=== PATIENT | male | born 1950 | race Caucasian/White ===

== ENCOUNTER 2017-11-11 10:14 | Inpatient (IN) | payer OTHER ==
[2017-11-11 10:52] VITALS: BMI 18.9
--- NOTE | 2017-11-11 11:50 | HP ---
COWS - Scale Resting Pulse: 1= [place] 81-100 Sweatin= Chills/Flushing Restless Observation: 3= Extraneous Movement Pupil Size: 1= Pupils >than Normal Bone or Joint Aches: 2= Severe Diffuse Aches Runny Nose/ Eye Tearin= Runny Nose/Eyes GI Upset > 30mins: 3= Vomiting/Diarrhea Tremor Observation: 2= Slight Tremor Visible Yawning Observation: 1= 1-2x During Session Anxiety or Irritability: 2=Irritable/Anxious Goose Flesh Skin: 0=Smooth Skin COWS Score: 18 Admission ROS S - HPI Chief Complaint: i need help to stop using heroin Allergies/Adverse Reactions: Allergies Allergy/AdvReac Type Severity Reaction Status Date / Time No Known Allergies Allergy Verified 11/11/17 11:12 History of Present Illness: this 67 years old male with heroin dependence,seen in [facility] last night,refer to detox,history of heroin dependence, multiple medical problem iddm,hypertension,hypercholesterolemia,history of mi in the past stated he used to be in the prison and was discharged from prison 2 weeks ago has been ambulating with own walker for last 2 years due to weakness and for balance nicotine dependence never been in detox before,stated need help to stop using heroin Exam Limitations: No Limitations - Ebola screening Have you traveled outside of the country in the last 21 days: No Have you had contact with anyone from an Ebola affected area: No Have you been sick,other than usual withdrawal symptoms: No Do you have a fever: No - Review of Systems Constitutional: Chills, Loss of Appetite, Malaise, Night Sweats, Changes in sleep, Weakness, Unintentional Wgt. Loss EENT: reports: Tearing, Nose Congestion Respiratory: reports: No Symptoms reported Cardiac: reports: Palpitations GI: reports: Nausea, Vomiting, Abdominal cramping : reports: No Symptoms Reported Musculoskeletal: reports: Back Pain, Muscle Pain Integumentary: reports: Dryness Neuro: reports: Headache, Tremors Endocrine: reports: Unexplained Weight Loss Hematology: reports: No Symptoms Reported Psychiatric: reports: No Sypmtoms Reported, Judgement Intact, Mood/Affect Appropiate, Orientated x3 Patient History - Patient Medical History Hx Anemia: No Hx Asthma: No Hx Chronic Obstructive Pulmonary Disease (COPD): No Hx Cancer: No Hx Cardiac Disorders: No Hx Congestive Heart Failure: No Hx Hypertension: Yes (on meds) Hx Hypercholesterolemia: Yes (on med) Hx Pacemaker: No HX Cerebrovascular Accident: No Hx Seizures: No Hx Dementia: No Hx Diabetes: Yes (Type II) Hx Gastrointestinal Disorders: No Hx Liver Disease: No Hx Genitourinary Disorders: No Hx Sexually Transmitted Disorders: No Hx Renal Disease (ESRD): No Hx Thyroid Disease: No Hx Human Immunodeficiency Virus (HIV): No (08/01) Hx Hepatitis C: No Hx Depression: No Hx Suicide Attempt: No Hx Bipolar Disorder: No Hx Schizophrenia: No Other Medical History: no suicidal,no homicidal - Patient Surgical History Past Surgical History: No - PPD History Previous Implant?: Yes Documented Results: Negative w/o proof Implanted On Prior [facility] Admission?: No PPD to be Administered?: Yes - Smoking Cessation Smoking history: Current every day smoker Have you smoked in the past 12 months: Yes Aproximately how many cigarettes per day: 4 Hx Chewing Tobacco Use: No Initiated information on smoking cessation: Yes 'Breaking Loose' booklet given: 11/11/17 - Substance & Tx. History Hx Alcohol Use: No Hx Substance Use: Yes Substance Use Type: Heroin Hx Substance Use Treatment: No - Substances Abused Heroin Route: Inhalation Frequency: Daily Amount used: 3-4 bags Age of first use: 64 Date of Last Use: 11/10/17 Family Disease History - Family Disease History Family History: Denies Admission Physical Exam BHS - Vital Signs Vital Signs: Vital Signs - 24 hr 11/11/17 10:50 Temperature 97 F L Pulse Rate 89 Respiratory 18 Rate Blood Pressure 134/84 - Physical General Appearance: Yes: Moderate Distress, Tremorous, Irritable, Sweating, Anxious HEENTM: Yes: Normal ENT Inspection, Normocephalic, Normal Voice, TRUE, Pharynx Normal, Other (no upper teeth no denture) Respiratory: Yes: Lungs Clear, Normal Breath Sounds, No Respiratory Distress Neck: Yes: Within Normal Limits, Supple, Trachea in good position Breast: Yes: Within Normal Limits Cardiology: Yes: Within Normal Limits, Regular Rhythm, Regular Rate, S1, S2 Abdominal: Yes: Within Normal Limits, Normal Bowel Sounds, Non Tender, Flat, Soft Genitourinary: Yes: Within Normal Limits Back: Yes: Muscle Spasm Musculoskeletal: Yes: Back pain, Joint Stiffness, Muscle Pain, Other (use walker at home) Extremities: Yes: Tremors Neurological: Yes: cigarette examiner II-XII NML intact, Fully Oriented, Alert, Other ( ambulate with walker outside history of fall in the past) Integumentary: Yes: Dry, Other (superficial ulcer both buttocks size 3x3 inches) Lymphatic: Yes: Within Normal Limits - Diagnostic (1) Opioid dependence with withdrawal Current Visit: Yes Status: Acute (2) Essential hypertension Current Visit: Yes Status: Acute (3) Hypercholesterolemia Current Visit: Yes Status: Acute (4) Osteoporosis Current Visit: Yes Status: Acute (5) Arthritis Current Visit: Yes Status: Acute (6) Walker as ambulation aid Current Visit: Yes Status: Acute (7) Nicotine dependence Current Visit: Yes Status: Acute (8) History of fall Current Visit: Yes Status: Acute (9) 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
[2017-11-11] MEDS ORDERED: LOPERAMIDE HCL 2 MG CAPSULE PO PRN (12:29)
[2017-11-11] MEDS ORDERED: P-EPHED 60MG/TRIPROLIDI 2.5MG TABLET PO PRN (12:29)
[2017-11-11] MEDS ORDERED: MENTHOL/PHENOL 1 EACH UD MM PRN (12:29)
[2017-11-11] MEDS ORDERED: guaiFENesin/D-METHORPHAN HB 10 ML UNIT-DOSE CUPS PO PRN (12:29)
[2017-11-11] MEDS ORDERED: METHADONE HCL 10 MG TABLET (FOR DETOX USE ONLY) PO ONE ×2 (13:00→23:00)
[2017-11-11] MEDS: diazePAM 5 MG TABLET PO PRN (14:25)
[2017-11-11] MEDS: NICOTINE 14 MG/24 HOURS TOPICAL PATCH TD SCH (14:33)
[2017-11-11 16:54] LABS: URINE APPEARANCE CLEAR; URINE BILIRUBIN NEGATIVE (<2.0 mg/dL); URINE COLOR LTYELLOW; URINE GLUCOSE (UA) 3+ (NEGATIVE); URINE KETONE NEGATIVE (NEGATIVE); URINE LEUK ESTERASE NEGATIVE (NEGATIVE); URINE NITRITE NEGATIVE (NEGATIVE); URINE PROTEIN NEGATIVE (NEGATIVE); URINE UROBILINOGEN NEGATIVE mg/dL (0.2-1.0)
[2017-11-11] MEDS: INSULIN (NOVOLOG) ASPART 100 UNITS/ML 10ML VIAL SQ SCH ×2 (16:55→22:40)
[2017-11-11] MEDS ORDERED: INSULIN (NOVOLOG) ASPART 100 UNITS/ML 10ML VIAL ONE (16:57)
[2017-11-11 17:03] LABS: EPI CELLS RARE /HPF (FEW)
[2017-11-11 17:40] LABS: CHOLESTEROL 201 mg/dL (50-200); TRIGLYCERIDES 131 mg/dL (35-160)
[2017-11-11 17:43] LABS: HDL CHOLESTEROL 40 mg/dL (40-60)
[2017-11-11] MEDS: THIAMINE HCL 100 MG TABLET (FP) PO SCH (22:24)
[2017-11-11] MEDS: SILVER SULFADIAZINE 1% TOP CREAM 50 GM JAR TP SCH (22:24)
[2017-11-11] MEDS: ATORVASTATIN CA 10 MG TABLET (FP) PO SCH (22:25)
[2017-11-12] MEDS: INSULIN (NOVOLOG) ASPART 100 UNITS/ML 10ML VIAL SQ SCH ×4 (08:00→22:48)
[2017-11-12] MEDS ORDERED: INSULIN (NOVOLOG) ASPART 100 UNITS/ML 10ML VIAL ONE ×3 (08:24→22:52)
--- NOTE | 2017-11-12 09:09 | PN ---
BHS COWS - Scale Resting Pulse: 0= [place] 80 or Below Sweatin= Chills/Flushing Restless Observation: 3= Extraneous Movement Pupil Size: 1= Pupils >than Normal Bone or Joint Aches: 2= Severe Diffuse Aches Runny Nose/ Eye Tearin= Runny Nose/Eyes GI Upset > 30mins: 2= Nausea/Diarrhea Tremor Observation of Outstretched Hands: 2= Slight Tremor Visible Yawning Observation: 1= 1-2x During Session Anxiety or Irritability: 2=Irritable/Anxious Goose Flesh Skin: 0=Smooth Skin COWS Score: 16 BHS Progress Note (SOAP) Subjective: alert,irritable,anxious,interrupted sleep,pain in the body and back Objective: 11/12/17 09:04 Vital Signs Temperature 99.1 F 11/12/17 08:59 Pulse Rate 96 H 11/12/17 08:59 Respiratory Rate 20 11/12/17 08:59 Blood Pressure 121/81 11/12/17 08:59 O2 Sat by Pulse Oximetry (%) ekg sinus bradycardia 43/min qt/qtc 460/388 no chest pain,no sob,no dizziness Laboratory Last Values POC Glucometer 170 UNITS (80-120) 11/12/17 08:15 Triglycerides 131 mg/dL (35-160) 11/11/17 12:40 Cholesterol 201 mg/dL (50-200) H 11/11/17 12:40 Total LDL Cholesterol 151 mg/dL (5-100) H 11/11/17 12:40 HDL Cholesterol 40 mg/dL (40-60) 11/11/17 12:40 Urine Color Ltyellow 11/11/17 14:49 Urine Appearance Clear 11/11/17 14:49 Urine pH 5.0 (5.0-8.0) 11/11/17 14:49 Ur Specific [place] 1.026 (1.001-1.035) 11/11/17 14:49 Urine Protein Negative (NEGATIVE) 11/11/17 14:49 Urine Glucose (UA) 3+ (NEGATIVE) H 11/11/17 14:49 Urine Ketones Negative (NEGATIVE) 11/11/17 14:49 Urine Blood 3+ (NEGATIVE) H 11/11/17 14:49 Urine Nitrite Negative (NEGATIVE) 11/11/17 14:49 Urine Bilirubin Negative (<2.0 mg/dL) 11/11/17 14:49 Urine Urobilinogen Negative mg/dL (0.2-1.0) 11/11/17 14:49 Ur Leukocyte Esterase Negative (NEGATIVE) 11/11/17 14:49 Urine WBC (Auto) 2 /hpf (3-5) 11/11/17 14:49 Urine RBC (Auto) 192 /hpf (0-3) 11/11/17 14:49 Ur Epithelial Cells Rare /HPF (FEW) 11/11/17 14:49 lab pending Assessment: 11/12/17 09:07 withdrawal symptom Plan: continue detox,repeat ua,
--- NOTE | 2017-11-12 09:26 | PN ---
BHS Progress Note Note: please disregard the ekg finding on note .03,belong to other patient the ekg finding is nsr 80/min qt/qtc 396/456
--- NOTE | 2017-11-12 09:27 | CONSULT ---
[facility] Psychiatric Consult - Data Date of interview: 11/12/17 Admission source: [facility] Identifying data: This is a 67 years old male, ambulating with walker, single father of three, homeless, on SSI, with heroin, nicotine dependence,seen in [facility] last night,refer to detox, reporting withdrawal symptoms and history of heroin dependence,. Patient reports multiple medical problems, denies suicidal, homicidal history Substance Abuse History: Smoking history: Current every day smoker. Have you smoked in the past 12 months: Yes. Aproximately how many cigarettes per day: 4. Hx Chewing Tobacco Use: No. Initiated information on smoking cessation: Yes. 'Breaking Loose' booklet given: 11/11/17. - Substance & Tx. History. Hx Alcohol Use: No. Hx Substance Use: Yes. Substance Use Type: Heroin. Hx Substance Use Treatment: No. - Substances Abused. Heroin. Route: Inhalation. Frequency: Daily. Amount used: 3-4 bags. Age of first use: 64. Date of Last Use: 11/10/17 Medical History: Arthritis history, HTN, Hypercholesterolemia, ambulating with walker, DM-II, [place]optry of [place] Psychiatric History: PATIENT REPORTS NO PSYCHIATRIC HOSPITALIZATION HISTORY, REPORTS NO PSYCHIATRIC MEDICATIONS TAKING PRIOR TO ADMISSIONL REPORTS NO SUICIDAL, HOMICIDAL HISTORY WELL. Physical/Sexual Abuse/Trauma History: Denies Additional Comment: Observation. Detox Unit Care Protocol Mental Status Exam - Mental Status Exam Alert and Oriented to: Person Cognitive Function: Fair Patient Appearance: Unkempt Mood: Apprehensive Affect: Mood Congruent Patient Behavior: Talkative, Cooperative Speech Pattern: Appropriate Voice Loudness: Mildly Soft/Quiet Thought Process: Circumstantial, Goal Oriented Thought Disorder: Being Controlled Hallucinations: Denies Suicidal Ideation: Denies Homicidal Ideation: Denies Insight/Judgement: Fair Sleep: Difficulty falling asleep Appetite: Weight loss Muscle strength/Tone: Mild Hypotonicity Gait/Station: Deferred Additional Comments: Observation. Detox Unit Care Protocol Psychiatric Findings - Problem List ([place] 1, 2,3) (1) Arthritis Current Visit: Yes Status: Acute (2) Essential hypertension Current Visit: Yes Status: Acute (3) Hypercholesterolemia Current Visit: Yes Status: Acute (4) Nicotine dependence Current Visit: Yes Status: Acute (5) Opioid dependence with withdrawal Current Visit: Yes Status: Acute (6) Osteoporosis Current Visit: Yes Status: Acute (7) Walker as ambulation aid Current Visit: Yes Status: Acute - Initial Treatment Plan Initial Treatment Plan: Observation. Detox Unit Care Protocol
[2017-11-12 10:00] LABS: HEMATOCRIT 37.1 % (35.4-49); HEMOGLOBIN 12.1 GM/dL (11.7-16.9); MCH 29.5 pg (25.7-33.7); MCHC 32.7 g/dl (32.0-35.9); MEAN CELL VOLUME 90.3 fl (80-96); MEAN PLT VOLUME 8.7 fl (7.5-11.1); PLATELET COUNT 345 K/MM3 (134-434); RDW 13.1 % (11.9-15.9); WHITE BLOOD COUNT 10.1 K/mm3 (4.0-10.0)
[2017-11-12] MEDS ORDERED: METHADONE HCL 10 MG TABLET (FOR DETOX USE ONLY) PO ONE (10:00)
[2017-11-12 10:09] LABS: ALBUMIN 3.3 g/dl (3.4-5.0); ANION GAP 9 MMOL/L (8-16); BLOOD UREA NITROGEN 17 mg/dL (7-18); CALCIUM 9.2 mg/dL (8.5-10.1); CHLORIDE 100 mmol/L (98-107); CO2 29 mmol/L (21-32); GLUCOSE,RANDOM 263 mg/dL (74-106); POTASSIUM 4.5 mmol/L (3.5-5.1); SODIUM 138 mmol/L (136-145)
[2017-11-12 10:14] LABS: ALK PHOS 91 U/L (45-117); BILIRUBIN,TOTAL 0.3 mg/dL (0.2-1.0); CREATININE 0.9 mg/dL (0.7-1.3); SGOT/AST 15 U/L (15-37); SGPT/ALT 26 U/L (12-78); TOT PROT 6.7 g/dl (6.4-8.2)
--- NOTE | 2017-11-12 10:45 | EKG ---
Test Reason : Blood Pressure : / mmHG Vent. Rate : 080 BPM Atrial Rate : 080 BPM P-R Int : 122 ms QRS Dur : 094 ms QT Int : 396 ms P-R-T Axes : 064 -41 052 degrees QTc Int : 456 ms NORMAL SINUS RHYTHM LEFT AXIS DEVIATION ABNORMAL ECG NO PREVIOUS ECGS AVAILABLE Confirmed by MARILUZ LUCIA MD ([id number]) on 11/12/2017 10:44:41 AM Referred By: Confirmed By:MARILUZ LUCIA MD
[2017-11-12] MEDS: LOSARTAN 50MG/HCTZ 12.5MG 1 TAB (FP) PO SCH (10:53)
[2017-11-12] MEDS: PRENATAL VITAMINS W/ FOLIC ACID TABLET (FP) PO SCH (10:53)
[2017-11-12] MEDS: NICOTINE 14 MG/24 HOURS TOPICAL PATCH TD SCH (10:54)
[2017-11-12] MEDS: SILVER SULFADIAZINE 1% TOP CREAM 50 GM JAR TP SCH ×2 (10:54→22:49)
[2017-11-12] MEDS: THIAMINE HCL 100 MG TABLET (FP) PO SCH (22:47)
[2017-11-12] MEDS: ATORVASTATIN CA 10 MG TABLET (FP) PO SCH (22:49)
[2017-11-13] MEDS: INSULIN (NOVOLOG) ASPART 100 UNITS/ML 10ML VIAL SQ SCH ×3 (06:55→17:33)
[2017-11-13] MEDS ORDERED: METHADONE HCL 5 MG TABLET (FOR DETOX USE ONLY) PO ONE (10:00)
[2017-11-13] MEDS: LOSARTAN 50MG/HCTZ 12.5MG 1 TAB (FP) PO SCH (10:28)
[2017-11-13] MEDS: PRENATAL VITAMINS W/ FOLIC ACID TABLET (FP) PO SCH (10:28)
[2017-11-13] MEDS: SILVER SULFADIAZINE 1% TOP CREAM 50 GM JAR TP SCH (10:28)
[2017-11-13] MEDS: NICOTINE 14 MG/24 HOURS TOPICAL PATCH TD SCH (10:28)
[2017-11-13] MEDS ORDERED: INSULIN (NOVOLOG) ASPART 100 UNITS/ML 10ML VIAL ONE ×2 (12:08→16:56)
--- NOTE | 2017-11-13 13:36 | PN ---
BHS COWS - Scale Resting Pulse: 2= [place] 101-120 Sweatin= Chills/Flushing Restless Observation: 3= Extraneous Movement Pupil Size: 1= Pupils >than Normal Bone or Joint Aches: 2= Severe Diffuse Aches Runny Nose/ Eye Tearin= Nasal Congestion GI Upset > 30mins: 2= Nausea/Diarrhea Tremor Observation of Outstretched Hands: 2= Slight Tremor Visible Yawning Observation: 1= 1-2x During Session Anxiety or Irritability: 2=Irritable/Anxious Goose Flesh Skin: 0=Smooth Skin COWS Score: 17 BHS Progress Note (SOAP) Subjective: alert,irritable,anxious,interrupted sleep,tremor,pain in the body,constipation Objective: 11/13/17 13:33 Vital Signs Temperature 98.2 F 11/13/17 13:19 Pulse Rate 89 11/13/17 13:19 Respiratory Rate 20 11/13/17 13:19 Blood Pressure 133/87 11/13/17 13:19 O2 Sat by Pulse Oximetry (%) Laboratory Last Values WBC 10.1 K/mm3 (4.0-10.0) H 11/12/17 06:10 RBC 4.10 M/mm3 (4.00-5.60) 11/12/17 06:10 Hgb 12.1 GM/dL (11.7-16.9) 11/12/17 06:10 Hct 37.1 % (35.4-49) 11/12/17 06:10 MCV 90.3 fl (80-96) 11/12/17 06:10 MCH 29.5 pg (25.7-33.7) 11/12/17 06:10 MCHC 32.7 g/dl (32.0-35.9) 11/12/17 06:10 RDW 13.1 % (11.9-15.9) 11/12/17 06:10 Plt Count 345 K/MM3 (134-434) 11/12/17 06:10 MPV 8.7 fl (7.5-11.1) 11/12/17 06:10 Sodium 138 mmol/L (136-145) 11/12/17 06:10 Potassium 4.5 mmol/L (3.5-5.1) 11/12/17 06:10 Chloride 100 mmol/L (98-107) 11/12/17 06:10 Carbon Dioxide 29 mmol/L (21-32) 11/12/17 06:10 Anion Gap 9 MMOL/L (8-16) 11/12/17 06:10 BUN 17 mg/dL (7-18) 11/12/17 06:10 Creatinine 0.9 mg/dL (0.7-1.3) 11/12/17 06:10 Creat Clearance w eGFR > 60 (>60) 11/12/17 06:10 POC Glucometer 259 UNITS (80-120) 11/13/17 11:54 Random Glucose 263 mg/dL (74-106) H 11/12/17 06:10 Calcium 9.2 mg/dL (8.5-10.1) 11/12/17 06:10 Total Bilirubin 0.3 mg/dL (0.2-1.0) 11/12/17 06:10 AST 15 U/L (15-37) 11/12/17 06:10 ALT 26 U/L (12-78) 11/12/17 06:10 Alkaline Phosphatase 91 U/L (45-117) 11/12/17 06:10 Total Protein 6.7 g/dl (6.4-8.2) 11/12/17 06:10 Albumin 3.3 g/dl (3.4-5.0) L 11/12/17 06:10 Triglycerides 131 mg/dL (35-160) 11/11/17 12:40 Cholesterol 201 mg/dL (50-200) H 11/11/17 12:40 Total LDL Cholesterol 151 mg/dL (5-100) H 11/11/17 12:40 HDL Cholesterol 40 mg/dL (40-60) 11/11/17 12:40 Urine Color Ltyellow 11/11/17 14:49 Urine Appearance Clear 11/11/17 14:49 Urine pH 5.0 (5.0-8.0) 11/11/17 14:49 Ur Specific [place] 1.026 (1.001-1.035) 11/11/17 14:49 Urine Protein Negative (NEGATIVE) 11/11/17 14:49 Urine Glucose (UA) 3+ (NEGATIVE) H 11/11/17 14:49 Urine Ketones Negative (NEGATIVE) 11/11/17 14:49 Urine Blood 3+ (NEGATIVE) H 11/11/17 14:49 Urine Nitrite Negative (NEGATIVE) 11/11/17 14:49 Urine Bilirubin Negative (<2.0 mg/dL) 11/11/17 14:49 Urine Urobilinogen Negative mg/dL (0.2-1.0) 11/11/17 14:49 Ur Leukocyte Esterase Negative (NEGATIVE) 11/11/17 14:49 Urine WBC (Auto) 2 /hpf (3-5) 11/11/17 14:49 Urine RBC (Auto) 192 /hpf (0-3) 11/11/17 14:49 Ur Epithelial Cells Rare /HPF (FEW) 11/11/17 14:49 RPR Titer Nonreactive (NONREACTIVE) 11/12/17 06:10 Assessment: 11/13/17 13:34 withdrawal symptom Plan: continue detox,repeat ua for microscopic hematuria
--- NOTE | 2017-11-13 17:18 | PN ---
[facility] Progress Note Note: Vital Signs Temperature 97.9 F 11/13/17 17:06 Pulse Rate 84 11/13/17 17:06 Respiratory Rate 18 11/13/17 17:06 Blood Pressure 104/66 11/13/17 17:06 O2 Sat by Pulse Oximetry (%) Patient evaluated after called received from [facility] re: patient has flank blood spread on the bed. Patient reports had this episode before seven months ago and was treated at [facility] for "kidney problem." Reports burning sensation when urination , denies vertigo, chest pain or SOB. Patient AOx3, no distress EENT WNL no adventitious breath sounds + gross hematuria in urine no adventitious breath sounds skin intact, + chronic pressure ulcer on buttocks able to transfer independently, uses maul chair to get around Laboratory Last Values WBC 10.1 K/mm3 (4.0-10.0) H 11/12/17 06:10 RBC 4.10 M/mm3 (4.00-5.60) 11/12/17 06:10 Hgb 12.1 GM/dL (11.7-16.9) 11/12/17 06:10 Hct 37.1 % (35.4-49) 11/12/17 06:10 MCV 90.3 fl (80-96) 11/12/17 06:10 MCH 29.5 pg (25.7-33.7) 11/12/17 06:10 MCHC 32.7 g/dl (32.0-35.9) 11/12/17 06:10 RDW 13.1 % (11.9-15.9) 11/12/17 06:10 Plt Count 345 K/MM3 (134-434) 11/12/17 06:10 MPV 8.7 fl (7.5-11.1) 11/12/17 06:10 Sodium 138 mmol/L (136-145) 11/12/17 06:10 Potassium 4.5 mmol/L (3.5-5.1) 11/12/17 06:10 Chloride 100 mmol/L (98-107) 11/12/17 06:10 Carbon Dioxide 29 mmol/L (21-32) 11/12/17 06:10 Anion Gap 9 MMOL/L (8-16) 11/12/17 06:10 BUN 17 mg/dL (7-18) 11/12/17 06:10 Creatinine 0.9 mg/dL (0.7-1.3) 11/12/17 06:10 Creat Clearance w eGFR > 60 (>60) 11/12/17 06:10 POC Glucometer 259 UNITS (80-120) 11/13/17 11:54 Random Glucose 263 mg/dL (74-106) H 11/12/17 06:10 Calcium 9.2 mg/dL (8.5-10.1) 11/12/17 06:10 Total Bilirubin 0.3 mg/dL (0.2-1.0) 11/12/17 06:10 AST 15 U/L (15-37) 11/12/17 06:10 ALT 26 U/L (12-78) 11/12/17 06:10 Alkaline Phosphatase 91 U/L (45-117) 11/12/17 06:10 Total Protein 6.7 g/dl (6.4-8.2) 11/12/17 06:10 Albumin 3.3 g/dl (3.4-5.0) L 11/12/17 06:10 Triglycerides 131 mg/dL (35-160) 11/11/17 12:40 Cholesterol 201 mg/dL (50-200) H 11/11/17 12:40 Total LDL Cholesterol 151 mg/dL (5-100) H 11/11/17 12:40 HDL Cholesterol 40 mg/dL (40-60) 11/11/17 12:40 Urine Color Ltyellow 11/11/17 14:49 Urine Appearance Clear 11/11/17 14:49 Urine pH 5.0 (5.0-8.0) 11/11/17 14:49 Ur Specific [place] 1.026 (1.001-1.035) 11/11/17 14:49 Urine Protein Negative (NEGATIVE) 11/11/17 14:49 Urine Glucose (UA) 3+ (NEGATIVE) H 11/11/17 14:49 Urine Ketones Negative (NEGATIVE) 11/11/17 14:49 Urine Blood 3+ (NEGATIVE) H 11/11/17 14:49 Urine Nitrite Negative (NEGATIVE) 11/11/17 14:49 Urine Bilirubin Negative (<2.0 mg/dL) 11/11/17 14:49 Urine Urobilinogen Negative mg/dL (0.2-1.0) 11/11/17 14:49 Ur Leukocyte Esterase Negative (NEGATIVE) 11/11/17 14:49 Urine WBC (Auto) 2 /hpf (3-5) 11/11/17 14:49 Urine RBC (Auto) 192 /hpf (0-3) 11/11/17 14:49 Ur Epithelial Cells Rare /HPF (FEW) 11/11/17 14:49 RPR Titer Nonreactive (NONREACTIVE) 11/12/17 06:10 Patient send to [facility] for further evaluation via [facility]. Multiple calls made to [facility] to endorse patient with no success.
[2017-11-14] MEDS: diazePAM 5 MG TABLET PO PRN (01:23)
[2017-11-14] MEDS: INSULIN (NOVOLOG) ASPART 100 UNITS/ML 10ML VIAL SQ SCH ×5 (03:43→23:16)
[2017-11-14] MEDS: ATORVASTATIN CA 10 MG TABLET (FP) PO SCH ×2 (03:43→23:15)
[2017-11-14] MEDS: THIAMINE HCL 100 MG TABLET (FP) PO SCH ×2 (03:44→23:16)
[2017-11-14] MEDS: SILVER SULFADIAZINE 1% TOP CREAM 50 GM JAR TP SCH ×3 (03:44→23:16)
[2017-11-14] MEDS ORDERED: INSULIN (NOVOLOG) ASPART 100 UNITS/ML 10ML VIAL ONE ×3 (07:33→23:13)
[2017-11-14] MEDS ORDERED: METHADONE HCL 5 MG TABLET (FOR DETOX USE ONLY) PO ONE (10:00)
[2017-11-14] MEDS: NICOTINE 14 MG/24 HOURS TOPICAL PATCH TD SCH (11:26)
[2017-11-14] MEDS: LOSARTAN 50MG/HCTZ 12.5MG 1 TAB (FP) PO SCH (11:27)
[2017-11-14] MEDS: PRENATAL VITAMINS W/ FOLIC ACID TABLET (FP) PO SCH (11:27)
--- NOTE | 2017-11-14 11:28 | PN ---
[facility] Progress Note (SOAP) Subjective: alert,irritable,anxious,interrupted sleep,clear from er to return for continue detox,has hematuria last night Objective: 11/14/17 11:27 Vital Signs Temperature 97.9 F 11/14/17 11:11 Pulse Rate 91 H 11/14/17 11:11 Respiratory Rate 18 11/14/17 11:11 Blood Pressure 106/62 11/14/17 11:11 O2 Sat by Pulse Oximetry (%) Assessment: 11/14/17 11:28 withdrawal symptom Plan: continue detox
[2017-11-14] MEDS: hydrOXYzine PAMOATE 25 MG CAPSULE (FP) PO PRN (23:15)
[2017-11-15] MEDS: INSULIN (NOVOLOG) ASPART 100 UNITS/ML 10ML VIAL SQ SCH ×4 (08:00→23:08)
[2017-11-15] MEDS ORDERED: METHADONE HCL 10 MG TABLET (FOR DETOX USE ONLY) PO ONE (10:00)
[2017-11-15] MEDS: PRENATAL VITAMINS W/ FOLIC ACID TABLET (FP) PO SCH (11:01)
[2017-11-15] MEDS: LOSARTAN 50MG/HCTZ 12.5MG 1 TAB (FP) PO SCH (11:01)
[2017-11-15] MEDS: SILVER SULFADIAZINE 1% TOP CREAM 50 GM JAR TP SCH ×2 (11:05→23:02)
[2017-11-15] MEDS: NICOTINE 14 MG/24 HOURS TOPICAL PATCH TD SCH (11:08)
[2017-11-15] MEDS ORDERED: INSULIN (NOVOLOG) ASPART 100 UNITS/ML 10ML VIAL ONE ×3 (11:54→23:11)
--- NOTE | 2017-11-15 13:33 | PN ---
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 Objective: 11/15/17 13:38 Vital Signs Temperature 98.2 F 11/15/17 09:15 Pulse Rate 108 H 11/15/17 09:15 Respiratory Rate 16 11/15/17 09:15 Blood Pressure 132/95 11/15/17 09:15 O2 Sat by Pulse Oximetry (%) Laboratory Last Values WBC 10.1 K/mm3 (4.0-10.0) H 11/12/17 06:10 RBC 4.10 M/mm3 (4.00-5.60) 11/12/17 06:10 Hgb 12.1 GM/dL (11.7-16.9) 11/12/17 06:10 Hct 37.1 % (35.4-49) 11/12/17 06:10 MCV 90.3 fl (80-96) 11/12/17 06:10 MCH 29.5 pg (25.7-33.7) 11/12/17 06:10 MCHC 32.7 g/dl (32.0-35.9) 11/12/17 06:10 RDW 13.1 % (11.9-15.9) 11/12/17 06:10 Plt Count 345 K/MM3 (134-434) 11/12/17 06:10 MPV 8.7 fl (7.5-11.1) 11/12/17 06:10 Sodium 138 mmol/L (136-145) 11/12/17 06:10 Potassium 4.5 mmol/L (3.5-5.1) 11/12/17 06:10 Chloride 100 mmol/L (98-107) 11/12/17 06:10 Carbon Dioxide 29 mmol/L (21-32) 11/12/17 06:10 Anion Gap 9 MMOL/L (8-16) 11/12/17 06:10 BUN 17 mg/dL (7-18) 11/12/17 06:10 Creatinine 0.9 mg/dL (0.7-1.3) 11/12/17 06:10 Creat Clearance w eGFR > 60 (>60) 11/12/17 06:10 POC Glucometer 237 UNITS (80-120) 11/15/17 11:47 Random Glucose 263 mg/dL (74-106) H 11/12/17 06:10 Calcium 9.2 mg/dL (8.5-10.1) 11/12/17 06:10 Total Bilirubin 0.3 mg/dL (0.2-1.0) 11/12/17 06:10 AST 15 U/L (15-37) 11/12/17 06:10 ALT 26 U/L (12-78) 11/12/17 06:10 Alkaline Phosphatase 91 U/L (45-117) 11/12/17 06:10 Total Protein 6.7 g/dl (6.4-8.2) 11/12/17 06:10 Albumin 3.3 g/dl (3.4-5.0) L 11/12/17 06:10 Triglycerides 131 mg/dL (35-160) 11/11/17 12:40 Cholesterol 201 mg/dL (50-200) H 11/11/17 12:40 Total LDL Cholesterol 151 mg/dL (5-100) H 11/11/17 12:40 HDL Cholesterol 40 mg/dL (40-60) 11/11/17 12:40 Urine Color Ltyellow 11/11/17 14:49 Urine Appearance Clear 11/11/17 14:49 Urine pH 5.0 (5.0-8.0) 11/11/17 14:49 Ur Specific [place] 1.026 (1.001-1.035) 11/11/17 14:49 Urine Protein Negative (NEGATIVE) 11/11/17 14:49 Urine Glucose (UA) 3+ (NEGATIVE) H 11/11/17 14:49 Urine Ketones Negative (NEGATIVE) 11/11/17 14:49 Urine Blood 3+ (NEGATIVE) H 11/11/17 14:49 Urine Nitrite Negative (NEGATIVE) 11/11/17 14:49 Urine Bilirubin Negative (<2.0 mg/dL) 11/11/17 14:49 Urine Urobilinogen Negative mg/dL (0.2-1.0) 11/11/17 14:49 Ur Leukocyte Esterase Negative (NEGATIVE) 11/11/17 14:49 Urine WBC (Auto) 2 /hpf (3-5) 11/11/17 14:49 Urine RBC (Auto) 192 /hpf (0-3) 11/11/17 14:49 Ur Epithelial Cells Rare /HPF (FEW) 11/11/17 14:49 RPR Titer Nonreactive (NONREACTIVE) 11/12/17 06:10 lab noted Assessment: 11/15/17 13:39 mild withdrawal sx Plan: medically supervised detox
[2017-11-15] MEDS: ATORVASTATIN CA 10 MG TABLET (FP) PO SCH (23:02)
[2017-11-15] MEDS: THIAMINE HCL 100 MG TABLET (FP) PO SCH (23:02)
[2017-11-15] MEDS: MAGNESIUM HYDROX 2400MG/30ML ORAL SUSPENSION 30 ML CUP PO PRN (23:13)
[2017-11-16] MEDS ORDERED: METHADONE HCL 5 MG TABLET (FOR DETOX USE ONLY) PO ONE (06:00)
[2017-11-16] MEDS: INSULIN (NOVOLOG) ASPART 100 UNITS/ML 10ML VIAL SQ SCH ×4 (06:53→22:49)
[2017-11-16] MEDS ORDERED: INSULIN (NOVOLOG) ASPART 100 UNITS/ML 10ML VIAL ONE ×4 (06:53→22:51)
[2017-11-16] MEDS: LOSARTAN 50MG/HCTZ 12.5MG 1 TAB (FP) PO SCH (10:23)
[2017-11-16] MEDS: PRENATAL VITAMINS W/ FOLIC ACID TABLET (FP) PO SCH (10:23)
[2017-11-16] MEDS: MAGNESIUM CITRATE 300 ML BOTTLE PO PRN (10:24)
--- NOTE | 2017-11-16 11:14 | PN ---
[facility] Progress Note (SOAP) Subjective: patient continue experiencing opiate withdrawal sx joints pain body aches muscle cramping and indigestion Objective: 11/16/17 11:13 Vital Signs Temperature 99.1 F 11/16/17 09:27 Pulse Rate 93 H 11/16/17 09:27 Respiratory Rate 16 11/16/17 09:27 Blood Pressure 124/70 11/16/17 09:27 O2 Sat by Pulse Oximetry (%) Laboratory Last Values WBC 10.1 K/mm3 (4.0-10.0) H 11/12/17 06:10 RBC 4.10 M/mm3 (4.00-5.60) 11/12/17 06:10 Hgb 12.1 GM/dL (11.7-16.9) 11/12/17 06:10 Hct 37.1 % (35.4-49) 11/12/17 06:10 MCV 90.3 fl (80-96) 11/12/17 06:10 MCH 29.5 pg (25.7-33.7) 11/12/17 06:10 MCHC 32.7 g/dl (32.0-35.9) 11/12/17 06:10 RDW 13.1 % (11.9-15.9) 11/12/17 06:10 Plt Count 345 K/MM3 (134-434) 11/12/17 06:10 MPV 8.7 fl (7.5-11.1) 11/12/17 06:10 Sodium 138 mmol/L (136-145) 11/12/17 06:10 Potassium 4.5 mmol/L (3.5-5.1) 11/12/17 06:10 Chloride 100 mmol/L (98-107) 11/12/17 06:10 Carbon Dioxide 29 mmol/L (21-32) 11/12/17 06:10 Anion Gap 9 MMOL/L (8-16) 11/12/17 06:10 BUN 17 mg/dL (7-18) 11/12/17 06:10 Creatinine 0.9 mg/dL (0.7-1.3) 11/12/17 06:10 Creat Clearance w eGFR > 60 (>60) 11/12/17 06:10 POC Glucometer 235 UNITS (80-120) 11/16/17 06:48 Random Glucose 263 mg/dL (74-106) H 11/12/17 06:10 Calcium 9.2 mg/dL (8.5-10.1) 11/12/17 06:10 Total Bilirubin 0.3 mg/dL (0.2-1.0) 11/12/17 06:10 AST 15 U/L (15-37) 11/12/17 06:10 ALT 26 U/L (12-78) 11/12/17 06:10 Alkaline Phosphatase 91 U/L (45-117) 11/12/17 06:10 Total Protein 6.7 g/dl (6.4-8.2) 11/12/17 06:10 Albumin 3.3 g/dl (3.4-5.0) L 11/12/17 06:10 Triglycerides 131 mg/dL (35-160) 11/11/17 12:40 Cholesterol 201 mg/dL (50-200) H 11/11/17 12:40 Total LDL Cholesterol 151 mg/dL (5-100) H 11/11/17 12:40 HDL Cholesterol 40 mg/dL (40-60) 11/11/17 12:40 Urine Color Ltyellow 11/11/17 14:49 Urine Appearance Clear 11/11/17 14:49 Urine pH 5.0 (5.0-8.0) 11/11/17 14:49 Ur Specific [place] 1.026 (1.001-1.035) 11/11/17 14:49 Urine Protein Negative (NEGATIVE) 11/11/17 14:49 Urine Glucose (UA) 3+ (NEGATIVE) H 11/11/17 14:49 Urine Ketones Negative (NEGATIVE) 11/11/17 14:49 Urine Blood 3+ (NEGATIVE) H 11/11/17 14:49 Urine Nitrite Negative (NEGATIVE) 11/11/17 14:49 Urine Bilirubin Negative (<2.0 mg/dL) 11/11/17 14:49 Urine Urobilinogen Negative mg/dL (0.2-1.0) 11/11/17 14:49 Ur Leukocyte Esterase Negative (NEGATIVE) 11/11/17 14:49 Urine WBC (Auto) 2 /hpf (3-5) 11/11/17 14:49 Urine RBC (Auto) 192 /hpf (0-3) 11/11/17 14:49 Ur Epithelial Cells Rare /HPF (FEW) 11/11/17 14:49 RPR Titer Nonreactive (NONREACTIVE) 11/12/17 06:10 repeat ua lab noted 11/16/17 11:15 Assessment: 11/16/17 11:15 mild withdrawal sx Plan: medically supervised detox
[2017-11-16] MEDS: NICOTINE 14 MG/24 HOURS TOPICAL PATCH TD SCH (11:35)
[2017-11-16] MEDS: SILVER SULFADIAZINE 1% TOP CREAM 50 GM JAR TP SCH ×2 (15:56→22:49)
[2017-11-16 17:29] LABS: URINE APPEARANCE SLCLOUDY; URINE BILIRUBIN NEGATIVE (<2.0 mg/dL); URINE COLOR YELLOW; URINE GLUCOSE (UA) 3+ (NEGATIVE); URINE KETONE NEGATIVE (NEGATIVE); URINE LEUK ESTERASE NEGATIVE (NEGATIVE); URINE NITRITE NEGATIVE (NEGATIVE); URINE PROTEIN NEGATIVE (NEGATIVE); URINE UROBILINOGEN NEGATIVE mg/dL (0.2-1.0)
[2017-11-16] MEDS: ATORVASTATIN CA 10 MG TABLET (FP) PO SCH (22:48)
[2017-11-16] MEDS: THIAMINE HCL 100 MG TABLET (FP) PO SCH (22:48)
[2017-11-17] MEDS: INSULIN (NOVOLOG) ASPART 100 UNITS/ML 10ML VIAL SQ SCH ×4 (07:24→21:14)
[2017-11-17] MEDS ORDERED: INSULIN (NOVOLOG) ASPART 100 UNITS/ML 10ML VIAL ONE ×3 (07:24→21:13)
[2017-11-17] MEDS: PRENATAL VITAMINS W/ FOLIC ACID TABLET (FP) PO SCH (10:25)
[2017-11-17] MEDS: LOSARTAN 50MG/HCTZ 12.5MG 1 TAB (FP) PO SCH (10:25)
[2017-11-17] MEDS: NICOTINE 14 MG/24 HOURS TOPICAL PATCH TD SCH (10:26)
[2017-11-17] MEDS: SILVER SULFADIAZINE 1% TOP CREAM 50 GM JAR TP SCH ×2 (10:28→23:08)
--- NOTE | 2017-11-17 10:31 | PN ---
[facility] Progress Note (SOAP) Subjective: feeling little better today more energy able to perform ADL's reports eating more and walking around the [address] more frequently Objective: 11/17/17 10:30 Vital Signs Temperature 97.9 F 11/17/17 09:21 Pulse Rate 97 H 11/17/17 09:21 Respiratory Rate 16 11/17/17 09:21 Blood Pressure 123/81 11/17/17 09:21 O2 Sat by Pulse Oximetry (%) Laboratory Last Values WBC 10.1 K/mm3 (4.0-10.0) H 11/12/17 06:10 RBC 4.10 M/mm3 (4.00-5.60) 11/12/17 06:10 Hgb 12.1 GM/dL (11.7-16.9) 11/12/17 06:10 Hct 37.1 % (35.4-49) 11/12/17 06:10 MCV 90.3 fl (80-96) 11/12/17 06:10 MCH 29.5 pg (25.7-33.7) 11/12/17 06:10 MCHC 32.7 g/dl (32.0-35.9) 11/12/17 06:10 RDW 13.1 % (11.9-15.9) 11/12/17 06:10 Plt Count 345 K/MM3 (134-434) 11/12/17 06:10 MPV 8.7 fl (7.5-11.1) 11/12/17 06:10 Sodium 138 mmol/L (136-145) 11/12/17 06:10 Potassium 4.5 mmol/L (3.5-5.1) 11/12/17 06:10 Chloride 100 mmol/L (98-107) 11/12/17 06:10 Carbon Dioxide 29 mmol/L (21-32) 11/12/17 06:10 Anion Gap 9 MMOL/L (8-16) 11/12/17 06:10 BUN 17 mg/dL (7-18) 11/12/17 06:10 Creatinine 0.9 mg/dL (0.7-1.3) 11/12/17 06:10 Creat Clearance w eGFR > 60 (>60) 11/12/17 06:10 POC Glucometer 243 UNITS (80-120) 11/17/17 07:10 Random Glucose 263 mg/dL (74-106) H 11/12/17 06:10 Calcium 9.2 mg/dL (8.5-10.1) 11/12/17 06:10 Total Bilirubin 0.3 mg/dL (0.2-1.0) 11/12/17 06:10 AST 15 U/L (15-37) 11/12/17 06:10 ALT 26 U/L (12-78) 11/12/17 06:10 Alkaline Phosphatase 91 U/L (45-117) 11/12/17 06:10 Total Protein 6.7 g/dl (6.4-8.2) 11/12/17 06:10 Albumin 3.3 g/dl (3.4-5.0) L 11/12/17 06:10 Triglycerides 131 mg/dL (35-160) 11/11/17 12:40 Cholesterol 201 mg/dL (50-200) H 11/11/17 12:40 Total LDL Cholesterol 151 mg/dL (5-100) H 11/11/17 12:40 HDL Cholesterol 40 mg/dL (40-60) 11/11/17 12:40 Urine Color Yellow 11/16/17 15:54 Urine Appearance Slcloudy 11/16/17 15:54 Urine pH 6.0 (5.0-8.0) 11/16/17 15:54 Ur Specific [place] 1.022 (1.001-1.035) 11/16/17 15:54 Urine Protein Negative (NEGATIVE) 11/16/17 15:54 Urine Glucose (UA) 3+ (NEGATIVE) H 11/16/17 15:54 Urine Ketones Negative (NEGATIVE) 11/16/17 15:54 Urine Blood Negative (NEGATIVE) 11/16/17 15:54 Urine Nitrite Negative (NEGATIVE) 11/16/17 15:54 Urine Bilirubin Negative (<2.0 mg/dL) 11/16/17 15:54 Urine Urobilinogen Negative mg/dL (0.2-1.0) 11/16/17 15:54 Ur Leukocyte Esterase Negative (NEGATIVE) 11/16/17 15:54 Urine WBC (Auto) 2 /hpf (3-5) 11/11/17 14:49 Urine RBC (Auto) 192 /hpf (0-3) 11/11/17 14:49 Ur Epithelial Cells Rare /HPF (FEW) 11/11/17 14:49 RPR Titer Nonreactive (NONREACTIVE) 11/12/17 06:10 lab noted emphasize carbohydrate low diet Assessment: 11/17/17 10:31 mild withdrawal sx Plan: medically supervised detox
[2017-11-17] MEDS: MELATONIN 5 MG TABLETS PO PRN (21:14)
[2017-11-17] MEDS: ATORVASTATIN CA 10 MG TABLET (FP) PO SCH (21:14)
[2017-11-17] MEDS: THIAMINE HCL 100 MG TABLET (FP) PO SCH (21:14)
[2017-11-18] MEDS ORDERED: INSULIN (NOVOLOG) ASPART 100 UNITS/ML 10ML VIAL ONE ×4 (07:40→21:49)
[2017-11-18] MEDS: INSULIN (NOVOLOG) ASPART 100 UNITS/ML 10ML VIAL SQ SCH ×4 (07:58→21:40)
--- NOTE | 2017-11-18 09:38 | DS ---
[facility] Detox Discharge Summary Admission Date: 11/11/17 Discharge Date: 11/18/17 - History Present History: Opioid Dependence Additional Comments: 67 YEARS OLD MALE ADMITTED ON 11/11/17 FOR OPIATE WITHDRAWAL SX COMPLETED OPIATE DETOX REGIMEN TOLERATED WELL PATIENT DENIES OPIATE WITHDRAWAL SX TODAY ALERT ORIENTED X 3 NO ACUTE DISTRESS AMBULATE WITH WALKER ON HALLWAY SHOWERED ATE 90% BREAKFAST AFTERCARE REVELATION CASE DISCUSSED WITH COUNSELOR THAT BED IS AVAILABLE FOR THE PATIENT THE PATIENT CAN BE TRANSFERRED TO REHAB TODAY - Physical Exam Results Vital Signs: Vital Signs Temperature 98.4 F 11/18/17 09:32 Pulse Rate 108 H 11/18/17 09:32 Respiratory Rate 20 11/18/17 09:32 Blood Pressure 133/84 11/18/17 09:32 O2 Sat by Pulse Oximetry (%) Pertinent Admission Physical Exam Findings: OPIATE WITHDRAWAL SX Vital Signs Temperature 98.4 F 11/18/17 09:32 Pulse Rate 108 H 11/18/17 09:32 Respiratory Rate 20 11/18/17 09:32 Blood Pressure 133/84 11/18/17 09:32 O2 Sat by Pulse Oximetry (%) Laboratory Last Values WBC 10.1 K/mm3 (4.0-10.0) H 11/12/17 06:10 RBC 4.10 M/mm3 (4.00-5.60) 11/12/17 06:10 Hgb 12.1 GM/dL (11.7-16.9) 11/12/17 06:10 Hct 37.1 % (35.4-49) 11/12/17 06:10 MCV 90.3 fl (80-96) 11/12/17 06:10 MCH 29.5 pg (25.7-33.7) 11/12/17 06:10 MCHC 32.7 g/dl (32.0-35.9) 11/12/17 06:10 RDW 13.1 % (11.9-15.9) 11/12/17 06:10 Plt Count 345 K/MM3 (134-434) 11/12/17 06:10 MPV 8.7 fl (7.5-11.1) 11/12/17 06:10 Sodium 138 mmol/L (136-145) 11/12/17 06:10 Potassium 4.5 mmol/L (3.5-5.1) 11/12/17 06:10 Chloride 100 mmol/L (98-107) 11/12/17 06:10 Carbon Dioxide 29 mmol/L (21-32) 11/12/17 06:10 Anion Gap 9 MMOL/L (8-16) 11/12/17 06:10 BUN 17 mg/dL (7-18) 11/12/17 06:10 Creatinine 0.9 mg/dL (0.7-1.3) 11/12/17 06:10 Creat Clearance w eGFR > 60 (>60) 11/12/17 06:10 POC Glucometer 201 UNITS (80-120) 11/18/17 07:11 Random Glucose 263 mg/dL (74-106) H 11/12/17 06:10 Calcium 9.2 mg/dL (8.5-10.1) 11/12/17 06:10 Total Bilirubin 0.3 mg/dL (0.2-1.0) 11/12/17 06:10 AST 15 U/L (15-37) 11/12/17 06:10 ALT 26 U/L (12-78) 11/12/17 06:10 Alkaline Phosphatase 91 U/L (45-117) 11/12/17 06:10 Total Protein 6.7 g/dl (6.4-8.2) 11/12/17 06:10 Albumin 3.3 g/dl (3.4-5.0) L 11/12/17 06:10 Triglycerides 131 mg/dL (35-160) 11/11/17 12:40 Cholesterol 201 mg/dL (50-200) H 11/11/17 12:40 Total LDL Cholesterol 151 mg/dL (5-100) H 11/11/17 12:40 HDL Cholesterol 40 mg/dL (40-60) 11/11/17 12:40 Urine Color Yellow 11/16/17 15:54 Urine Appearance Slcloudy 11/16/17 15:54 Urine pH 6.0 (5.0-8.0) 11/16/17 15:54 Ur Specific [place] 1.022 (1.001-1.035) 11/16/17 15:54 Urine Protein Negative (NEGATIVE) 11/16/17 15:54 Urine Glucose (UA) 3+ (NEGATIVE) H 11/16/17 15:54 Urine Ketones Negative (NEGATIVE) 11/16/17 15:54 Urine Blood Negative (NEGATIVE) 11/16/17 15:54 Urine Nitrite Negative (NEGATIVE) 11/16/17 15:54 Urine Bilirubin Negative (<2.0 mg/dL) 11/16/17 15:54 Urine Urobilinogen Negative mg/dL (0.2-1.0) 11/16/17 15:54 Ur Leukocyte Esterase Negative (NEGATIVE) 11/16/17 15:54 Urine WBC (Auto) 2 /hpf (3-5) 11/11/17 14:49 Urine RBC (Auto) 192 /hpf (0-3) 11/11/17 14:49 Ur Epithelial Cells Rare /HPF (FEW) 11/11/17 14:49 RPR Titer Nonreactive (NONREACTIVE) 11/12/17 06:10 LAB NOTED BP AND GLUCOSE CONTINUE MONITORING IN REHAB UNIT - Treatment Hospital Course: Detox Protocol Followed, Detoxed Safely, Responded well, Discharged Condition Good, Rehab Referral Accepted Patient has Accepted a Rehab Referral to: [facility] - Medication Discharge Medications: Ambulatory Orders Insulin Glargine,Hum.rec.anlog [Lantus Solostar PEN -] 8 units SQ HS #1 ins 04/03 Losartan/Hydrochlorothiazide [Hyzaar 100-25 Tablet] 1 each PO DAILY #30 tablet 11/15/17 Simvastatin [Zocor -] 10 mg PO HS #30 tablet 11/15/17 - Diagnosis (1) Essential hypertension Current Visit: Yes Status: Chronic (2) Hypercholesterolemia Current Visit: Yes Status: Chronic (3) Nicotine dependence Current Visit: Yes Status: Acute Qualifiers: Nicotine product type: cigarettes Substance use status: in withdrawal Qualified Code(s): F17.213 - Nicotine dependence, cigarettes, with withdrawal (4) Opioid dependence with withdrawal Current Visit: Yes Status: Acute (5) Walker as ambulation aid Current Visit: Yes Status: Chronic - AMA Did Patient Leave Against Medical Advice: No
[2017-11-18] MEDS: LOSARTAN 50MG/HCTZ 12.5MG 1 TAB (FP) PO SCH (11:18)
[2017-11-18] MEDS: PRENATAL VITAMINS W/ FOLIC ACID TABLET (FP) PO SCH (11:18)
[2017-11-18] MEDS: NICOTINE 14 MG/24 HOURS TOPICAL PATCH TD SCH (11:18)
[2017-11-18] MEDS: SILVER SULFADIAZINE 1% TOP CREAM 50 GM JAR TP SCH ×2 (11:19→21:39)
--- NOTE | 2017-11-18 14:12 | HP ---
[facility] PAT[facility] Rehab Assess/Revision - Admission History Admitted to Rehab from: [facility] Date of Admission to Rehab: 11/18/17 - Vital signs Vital Signs: Vital Signs Period Temp Pulse Resp BP Sys/Pisano Pulse Ox Last 24 Hr 97.9 F-99.1 F 84-111 16-20 101-138/57-86 - Findings Detox History & Physical reviewed: Yes Concur with findings: Yes Comments/Additional Findings: TRANSFERRED FROM DETOX TO REHAB ADMISSION PER PROTOCOL Inpatient Rehab Admission - Initial Determination Are CD services needed?: Yes Free of communicable disease: Yes Not in need of hospitalization: Yes - Rehab Admission Criteria Previous failed treatment: Yes Poor recovery environment: Yes Comorbidities: No Lacks judgement: Yes Patient is meeting Inpatient Rehab admission criteria:: Yes
[2017-11-18] MEDS: ATORVASTATIN CA 10 MG TABLET (FP) PO SCH (21:37)
[2017-11-18] MEDS: THIAMINE HCL 100 MG TABLET (FP) PO SCH (21:37)
[2017-11-18] MEDS: MELATONIN 5 MG TABLETS PO PRN (21:37)
[2017-11-19] MEDS ORDERED: INSULIN (NOVOLOG) ASPART 100 UNITS/ML 10ML VIAL ONE ×4 (06:26→21:50)
[2017-11-19] MEDS: IBUPROFEN 400 MG TABLET (FP) PO PRN (06:29)
[2017-11-19] MEDS: INSULIN (NOVOLOG) ASPART 100 UNITS/ML 10ML VIAL SQ SCH ×4 (07:15→21:48)
[2017-11-19] MEDS: NICOTINE 14 MG/24 HOURS TOPICAL PATCH TD SCH (10:24)
[2017-11-19] MEDS: PRENATAL VITAMINS W/ FOLIC ACID TABLET (FP) PO SCH (10:24)
[2017-11-19] MEDS: LOSARTAN 50MG/HCTZ 12.5MG 1 TAB (FP) PO SCH (10:24)
[2017-11-19] MEDS: SILVER SULFADIAZINE 1% TOP CREAM 50 GM JAR TP SCH ×2 (10:50→21:51)
--- NOTE | 2017-11-19 11:05 | HP ---
Psychiatrist Admission - Data Date of interview: 11/19/17 Admission source: [facility] Identifying data: Patient is a 67 year old single male, father of three, retired , supported by [facility], and is currenty homeless. This is patient's first admission to rehab at [facility]. Pt. admitted to [address] [place] [address] for opiate dependence. Medical History: hypertension, hypercholesterolemia, diabetes, osteoporsis, Arthritis Psychiatric History: Patient denies h/o psychiatric hospitalization, outpatient care, and suicide attempt. Physical/Sexual Abuse/Trauma History: denies. Vital Signs: Vital Signs - 24 hr 11/18/17 11/18/17 11/19/17 13:36 15:06 06:50 Temperature 99.1 F 99 F 98.3 F Pulse Rate 93 H 103 H 106 H Respiratory 16 18 16 Rate Blood Pressure 114/76 130/68 127/87 Allergies/Adverse Reactions: Allergies Allergy/AdvReac Type Severity Reaction Status Date / Time No Known Allergies Allergy Verified 11/13/17 17:54 Date of last physical exam: 11/11/17 Concur with the findings of this exam: Yes - Substance Abuse/Tx History Hx Alcohol Use: Yes (Many years ago) Hx Substance Use: Yes (Heroin- 2-3 bags on the weekends) Substance Use Type: Heroin Hx Substance Use Treatment: No (First rehab hospitalization. ) Mental Status Exam - Mental Status Exam Alert and Oriented to: Time, Place, Person Cognitive Function: Good Patient Appearance: Well Groomed Mood: Euthymic Affect: Appropriate Patient Behavior: Appropriate, Cooperative Speech Pattern: Clear, Appropriate Voice Loudness: Normal Thought Process: Intact, Goal Oriented Thought Disorder: Not Present Hallucinations: Denies Suicidal Ideation: Denies Homicidal Ideation: Denies Insight/Judgement: Poor Sleep: Fair Appetite: Fair Muscle strength/Tone: Normal Gait/Station: Other (Patient ambulates with the assistance of a rolling walker.) Psychiatric Findings - Problem List ([facility] 1, 2,3) (1) Opioid dependence Current Visit: Yes Status: Acute (2) Nicotine dependence Current Visit: Yes Status: Chronic - Initial Treatment Plan Initial Treatment Plan: Psychoeducation provided. Detoxification in progress. Melatonin 5mg ordered by [employer]. Pt informed. Observation.
[2017-11-19] MEDS: ATORVASTATIN CA 10 MG TABLET (FP) PO SCH (21:50)
[2017-11-19] MEDS: THIAMINE HCL 100 MG TABLET (FP) PO SCH (21:51)
[2017-11-19] MEDS: MELATONIN 5 MG TABLETS PO PRN (21:51)
[2017-11-20] MEDS ORDERED: INSULIN (NOVOLOG) ASPART 100 UNITS/ML 10ML VIAL ONE ×4 (06:30→21:33)
[2017-11-20] MEDS: IBUPROFEN 400 MG TABLET (FP) PO PRN ×2 (06:33→21:31)
[2017-11-20] MEDS: INSULIN (NOVOLOG) ASPART 100 UNITS/ML 10ML VIAL SQ SCH ×4 (06:47→21:30)
[2017-11-20] MEDS: SILVER SULFADIAZINE 1% TOP CREAM 50 GM JAR TP SCH ×2 (10:15→21:31)
[2017-11-20] MEDS: MAGNESIUM HYDROX 2400MG/30ML ORAL SUSPENSION 30 ML CUP PO PRN (10:15)
[2017-11-20] MEDS: PRENATAL VITAMINS W/ FOLIC ACID TABLET (FP) PO SCH (10:15)
[2017-11-20] MEDS: NICOTINE 14 MG/24 HOURS TOPICAL PATCH TD SCH (10:15)
[2017-11-20] MEDS: LOSARTAN 50MG/HCTZ 12.5MG 1 TAB (FP) PO SCH (10:15)
[2017-11-20] MEDS: MELATONIN 5 MG TABLETS PO PRN (21:30)
[2017-11-20] MEDS: THIAMINE HCL 100 MG TABLET (FP) PO SCH (21:30)
[2017-11-20] MEDS: ATORVASTATIN CA 10 MG TABLET (FP) PO SCH (21:30)
[2017-11-21] MEDS ORDERED: INSULIN (NOVOLOG) ASPART 100 UNITS/ML 10ML VIAL ONE ×3 (06:33→20:47)
[2017-11-21] MEDS: IBUPROFEN 400 MG TABLET (FP) PO PRN (06:36)
[2017-11-21] MEDS: INSULIN (NOVOLOG) ASPART 100 UNITS/ML 10ML VIAL SQ SCH ×4 (07:02→22:27)
[2017-11-21] MEDS: PRENATAL VITAMINS W/ FOLIC ACID TABLET (FP) PO SCH (11:04)
[2017-11-21] MEDS: NICOTINE 14 MG/24 HOURS TOPICAL PATCH TD SCH (11:04)
[2017-11-21] MEDS: LOSARTAN 50MG/HCTZ 12.5MG 1 TAB (FP) PO SCH (11:06)
[2017-11-21] MEDS: SILVER SULFADIAZINE 1% TOP CREAM 50 GM JAR TP SCH ×2 (11:07→22:40)
[2017-11-21] MEDS: ATORVASTATIN CA 10 MG TABLET (FP) PO SCH (22:27)
[2017-11-21] MEDS: THIAMINE HCL 100 MG TABLET (FP) PO SCH (22:28)
[2017-11-21] MEDS: MELATONIN 5 MG TABLETS PO PRN (22:28)
[2017-11-22] MEDS: INSULIN (NOVOLOG) ASPART 100 UNITS/ML 10ML VIAL SQ SCH ×4 (06:38→21:58)
[2017-11-22] MEDS ORDERED: INSULIN (NOVOLOG) ASPART 100 UNITS/ML 10ML VIAL ONE ×3 (06:42→22:08)
[2017-11-22] MEDS: PRENATAL VITAMINS W/ FOLIC ACID TABLET (FP) PO SCH (10:31)
[2017-11-22] MEDS: LOSARTAN 50MG/HCTZ 12.5MG 1 TAB (FP) PO SCH (10:31)
[2017-11-22] MEDS: NICOTINE 14 MG/24 HOURS TOPICAL PATCH TD SCH (10:32)
[2017-11-22] MEDS: SILVER SULFADIAZINE 1% TOP CREAM 50 GM JAR TP SCH ×2 (10:32→22:00)
[2017-11-22] MEDS: THIAMINE HCL 100 MG TABLET (FP) PO SCH (21:55)
[2017-11-22] MEDS: IBUPROFEN 400 MG TABLET (FP) PO PRN (21:57)
[2017-11-22] MEDS: ATORVASTATIN CA 10 MG TABLET (FP) PO SCH (21:57)
[2017-11-22] MEDS: MELATONIN 5 MG TABLETS PO PRN (21:58)
[2017-11-23] MEDS ORDERED: INSULIN (NOVOLOG) ASPART 100 UNITS/ML 10ML VIAL ONE ×4 (06:20→20:35)
[2017-11-23] MEDS: INSULIN (NOVOLOG) ASPART 100 UNITS/ML 10ML VIAL SQ SCH ×4 (06:20→22:03)
[2017-11-23] MEDS: MAGNESIUM HYDROX 2400MG/30ML ORAL SUSPENSION 30 ML CUP PO PRN ×2 (06:22→14:38)
[2017-11-23] MEDS: PRENATAL VITAMINS W/ FOLIC ACID TABLET (FP) PO SCH (10:29)
[2017-11-23] MEDS: LOSARTAN 50MG/HCTZ 12.5MG 1 TAB (FP) PO SCH (10:29)
[2017-11-23] MEDS: SILVER SULFADIAZINE 1% TOP CREAM 50 GM JAR TP SCH ×2 (10:30→22:11)
[2017-11-23] MEDS: NICOTINE 14 MG/24 HOURS TOPICAL PATCH TD SCH (10:30)
[2017-11-23] MEDS: MELATONIN 5 MG TABLETS PO PRN (22:00)
[2017-11-23] MEDS: ATORVASTATIN CA 10 MG TABLET (FP) PO SCH (22:00)
[2017-11-23] MEDS: THIAMINE HCL 100 MG TABLET (FP) PO SCH (22:00)
[2017-11-23] MEDS: IBUPROFEN 400 MG TABLET (FP) PO PRN (22:02)
[2017-11-24] MEDS ORDERED: INSULIN (NOVOLOG) ASPART 100 UNITS/ML 10ML VIAL ONE ×3 (06:20→22:25)
[2017-11-24] MEDS: INSULIN (NOVOLOG) ASPART 100 UNITS/ML 10ML VIAL SQ SCH ×4 (06:22→22:20)
[2017-11-24] MEDS: DOCUSATE SODIUM 100 MG CAPSULE (FP) PO SCH (10:47)
[2017-11-24] MEDS: LOSARTAN 50MG/HCTZ 12.5MG 1 TAB (FP) PO SCH (10:47)
[2017-11-24] MEDS: NICOTINE 14 MG/24 HOURS TOPICAL PATCH TD SCH (10:47)
[2017-11-24] MEDS: PRENATAL VITAMINS W/ FOLIC ACID TABLET (FP) PO SCH (10:47)
[2017-11-24] MEDS: SILVER SULFADIAZINE 1% TOP CREAM 50 GM JAR TP SCH ×2 (10:48→22:23)
[2017-11-24] MEDS: THIAMINE HCL 100 MG TABLET (FP) PO SCH (22:18)
[2017-11-24] MEDS: ATORVASTATIN CA 10 MG TABLET (FP) PO SCH (22:18)
[2017-11-24] MEDS: MELATONIN 5 MG TABLETS PO PRN (22:23)
[2017-11-25] MEDS: INSULIN (NOVOLOG) ASPART 100 UNITS/ML 10ML VIAL SQ SCH ×4 (07:24→21:15)
[2017-11-25] MEDS ORDERED: INSULIN (NOVOLOG) ASPART 100 UNITS/ML 10ML VIAL ONE ×3 (07:32→21:16)
[2017-11-25] MEDS: NICOTINE 14 MG/24 HOURS TOPICAL PATCH TD SCH (10:44)
[2017-11-25] MEDS: SILVER SULFADIAZINE 1% TOP CREAM 50 GM JAR TP SCH ×2 (10:44→21:17)
[2017-11-25] MEDS: LOSARTAN 50MG/HCTZ 12.5MG 1 TAB (FP) PO SCH (10:45)
[2017-11-25] MEDS: DOCUSATE SODIUM 100 MG CAPSULE (FP) PO SCH (10:45)
[2017-11-25] MEDS: PRENATAL VITAMINS W/ FOLIC ACID TABLET (FP) PO SCH (10:45)
[2017-11-25] MEDS: IBUPROFEN 400 MG TABLET (FP) PO PRN (16:36)
[2017-11-25] MEDS: MAGNESIUM HYDROX 2400MG/30ML ORAL SUSPENSION 30 ML CUP PO PRN (16:37)
[2017-11-25] MEDS: ATORVASTATIN CA 10 MG TABLET (FP) PO SCH (21:16)
[2017-11-25] MEDS: MELATONIN 5 MG TABLETS PO PRN (21:16)
[2017-11-25] MEDS: THIAMINE HCL 100 MG TABLET (FP) PO SCH (21:16)
[2017-11-26] MEDS ORDERED: INSULIN (NOVOLOG) ASPART 100 UNITS/ML 10ML VIAL ONE ×3 (06:20→21:57)
[2017-11-26] MEDS: INSULIN (NOVOLOG) ASPART 100 UNITS/ML 10ML VIAL SQ SCH ×4 (07:11→21:54)
[2017-11-26] MEDS: PRENATAL VITAMINS W/ FOLIC ACID TABLET (FP) PO SCH (10:44)
[2017-11-26] MEDS: DOCUSATE SODIUM 100 MG CAPSULE (FP) PO SCH (10:44)
[2017-11-26] MEDS: NICOTINE 14 MG/24 HOURS TOPICAL PATCH TD SCH (10:45)
[2017-11-26] MEDS: SILVER SULFADIAZINE 1% TOP CREAM 50 GM JAR TP SCH ×2 (10:46→21:50)
[2017-11-26] MEDS: LOSARTAN 50MG/HCTZ 12.5MG 1 TAB (FP) PO SCH (10:46)
[2017-11-26] MEDS: THIAMINE HCL 100 MG TABLET (FP) PO SCH (21:50)
[2017-11-26] MEDS: ATORVASTATIN CA 10 MG TABLET (FP) PO SCH (21:50)
[2017-11-26] MEDS: hydrOXYzine PAMOATE 25 MG CAPSULE (FP) PO PRN (21:51)
[2017-11-26] MEDS: IBUPROFEN 400 MG TABLET (FP) PO PRN (21:52)
[2017-11-26] MEDS: MELATONIN 5 MG TABLETS PO PRN (21:52)
[2017-11-27] MEDS ORDERED: INSULIN (NOVOLOG) ASPART 100 UNITS/ML 10ML VIAL ONE ×3 (07:15→22:09)
[2017-11-27] MEDS: INSULIN (NOVOLOG) ASPART 100 UNITS/ML 10ML VIAL SQ SCH ×4 (07:17→22:01)
[2017-11-27] MEDS: DOCUSATE SODIUM 100 MG CAPSULE (FP) PO SCH (10:55)
[2017-11-27] MEDS: SILVER SULFADIAZINE 1% TOP CREAM 50 GM JAR TP SCH ×2 (10:55→22:00)
[2017-11-27] MEDS: PRENATAL VITAMINS W/ FOLIC ACID TABLET (FP) PO SCH (10:55)
[2017-11-27] MEDS: LOSARTAN 50MG/HCTZ 12.5MG 1 TAB (FP) PO SCH (10:55)
[2017-11-27] MEDS: NICOTINE 14 MG/24 HOURS TOPICAL PATCH TD SCH (10:55)
[2017-11-27] MEDS: THIAMINE HCL 100 MG TABLET (FP) PO SCH (21:59)
[2017-11-27] MEDS: MELATONIN 5 MG TABLETS PO PRN (21:59)
[2017-11-27] MEDS: ATORVASTATIN CA 10 MG TABLET (FP) PO SCH (21:59)
[2017-11-27] MEDS: MAGNESIUM HYDROX 2400MG/30ML ORAL SUSPENSION 30 ML CUP PO PRN (22:02)
[2017-11-28] MEDS: INSULIN (NOVOLOG) ASPART 100 UNITS/ML 10ML VIAL SQ SCH ×4 (06:41→21:40)
[2017-11-28] MEDS ORDERED: INSULIN (NOVOLOG) ASPART 100 UNITS/ML 10ML VIAL ONE ×4 (06:57→21:40)
[2017-11-28] MEDS: LOSARTAN 50MG/HCTZ 12.5MG 1 TAB (FP) PO SCH (10:48)
[2017-11-28] MEDS: DOCUSATE SODIUM 100 MG CAPSULE (FP) PO SCH (10:48)
[2017-11-28] MEDS: PRENATAL VITAMINS W/ FOLIC ACID TABLET (FP) PO SCH (10:48)
[2017-11-28] MEDS: SILVER SULFADIAZINE 1% TOP CREAM 50 GM JAR TP SCH ×2 (10:49→21:42)
[2017-11-28] MEDS: NICOTINE 14 MG/24 HOURS TOPICAL PATCH TD SCH (10:49)
[2017-11-28] MEDS: THIAMINE HCL 100 MG TABLET (FP) PO SCH (21:38)
[2017-11-28] MEDS: ATORVASTATIN CA 10 MG TABLET (FP) PO SCH (21:38)
[2017-11-28] MEDS: MELATONIN 5 MG TABLETS PO PRN (21:38)
[2017-11-28] MEDS: IBUPROFEN 400 MG TABLET (FP) PO PRN (21:41)
[2017-11-29] MEDS ORDERED: INSULIN (NOVOLOG) ASPART 100 UNITS/ML 10ML VIAL ONE ×3 (06:46→17:03)
[2017-11-29] MEDS: INSULIN (NOVOLOG) ASPART 100 UNITS/ML 10ML VIAL SQ SCH ×4 (07:48→21:41)
[2017-11-29] MEDS: MAGNESIUM HYDROX 2400MG/30ML ORAL SUSPENSION 30 ML CUP PO PRN (11:06)
[2017-11-29] MEDS: DOCUSATE SODIUM 100 MG CAPSULE (FP) PO SCH (11:06)
[2017-11-29] MEDS: PRENATAL VITAMINS W/ FOLIC ACID TABLET (FP) PO SCH (11:06)
[2017-11-29] MEDS: LOSARTAN 50MG/HCTZ 12.5MG 1 TAB (FP) PO SCH (11:06)
[2017-11-29] MEDS: SILVER SULFADIAZINE 1% TOP CREAM 50 GM JAR TP SCH ×2 (11:08→21:41)
[2017-11-29] MEDS: NICOTINE 14 MG/24 HOURS TOPICAL PATCH TD SCH (11:09)
[2017-11-29] MEDS: IBUPROFEN 400 MG TABLET (FP) PO PRN ×2 (12:16→21:41)
[2017-11-29] MEDS: THIAMINE HCL 100 MG TABLET (FP) PO SCH (21:40)
[2017-11-29] MEDS: MELATONIN 5 MG TABLETS PO PRN (21:40)
[2017-11-29] MEDS: ATORVASTATIN CA 10 MG TABLET (FP) PO SCH (21:40)
[2017-11-30] MEDS: MAG HYDROX/AL HYDROX/SIMETH 30 ML UNIT-DOSE CUP PO PRN (06:28)
[2017-11-30] MEDS ORDERED: INSULIN (NOVOLOG) ASPART 100 UNITS/ML 10ML VIAL ONE ×4 (06:28→21:57)
[2017-11-30] MEDS: INSULIN (NOVOLOG) ASPART 100 UNITS/ML 10ML VIAL SQ SCH ×4 (07:19→21:54)
[2017-11-30] MEDS: NICOTINE 14 MG/24 HOURS TOPICAL PATCH TD SCH (10:49)
[2017-11-30] MEDS: LOSARTAN 50MG/HCTZ 12.5MG 1 TAB (FP) PO SCH (10:49)
[2017-11-30] MEDS: DOCUSATE SODIUM 100 MG CAPSULE (FP) PO SCH (10:49)
[2017-11-30] MEDS: PRENATAL VITAMINS W/ FOLIC ACID TABLET (FP) PO SCH (10:49)
[2017-11-30] MEDS: SILVER SULFADIAZINE 1% TOP CREAM 50 GM JAR TP SCH ×2 (10:49→22:12)
[2017-11-30] MEDS: MELATONIN 5 MG TABLETS PO PRN (21:54)
[2017-11-30] MEDS: THIAMINE HCL 100 MG TABLET (FP) PO SCH (21:54)
[2017-11-30] MEDS: ATORVASTATIN CA 10 MG TABLET (FP) PO SCH (21:54)
[2017-11-30] MEDS: ACETAMINOPHEN 325 MG TABLET (FP) PO PRN (21:55)
[2017-12-01] MEDS ORDERED: INSULIN (NOVOLOG) ASPART 100 UNITS/ML 10ML VIAL ONE ×4 (06:26→22:06)
[2017-12-01] MEDS: INSULIN (NOVOLOG) ASPART 100 UNITS/ML 10ML VIAL SQ SCH ×4 (07:22→22:08)
[2017-12-01] MEDS: DOCUSATE SODIUM 100 MG CAPSULE (FP) PO SCH (10:24)
[2017-12-01] MEDS: SILVER SULFADIAZINE 1% TOP CREAM 50 GM JAR TP SCH ×2 (10:25→22:08)
[2017-12-01] MEDS: PRENATAL VITAMINS W/ FOLIC ACID TABLET (FP) PO SCH (10:25)
[2017-12-01] MEDS: NICOTINE 14 MG/24 HOURS TOPICAL PATCH TD SCH (10:25)
[2017-12-01] MEDS: LOSARTAN 50MG/HCTZ 12.5MG 1 TAB (FP) PO SCH (10:26)
[2017-12-01] MEDS: MAGNESIUM CITRATE 300 ML BOTTLE PO PRN (10:30)
[2017-12-01] MEDS: THIAMINE HCL 100 MG TABLET (FP) PO SCH (22:05)
[2017-12-01] MEDS: ATORVASTATIN CA 10 MG TABLET (FP) PO SCH (22:05)
[2017-12-01] MEDS: IBUPROFEN 400 MG TABLET (FP) PO PRN (22:07)
[2017-12-01] MEDS: MELATONIN 5 MG TABLETS PO PRN (22:07)
[2017-12-02] MEDS: INSULIN (NOVOLOG) ASPART 100 UNITS/ML 10ML VIAL SQ SCH ×4 (07:44→21:49)
[2017-12-02] MEDS ORDERED: INSULIN (NOVOLOG) ASPART 100 UNITS/ML 10ML VIAL ONE ×3 (07:49→21:47)
[2017-12-02] MEDS: DOCUSATE SODIUM 100 MG CAPSULE (FP) PO SCH (10:58)
[2017-12-02] MEDS: PRENATAL VITAMINS W/ FOLIC ACID TABLET (FP) PO SCH (10:58)
[2017-12-02] MEDS: LOSARTAN 50MG/HCTZ 12.5MG 1 TAB (FP) PO SCH (10:58)
[2017-12-02] MEDS: NICOTINE 14 MG/24 HOURS TOPICAL PATCH TD SCH (10:58)
[2017-12-02] MEDS: IBUPROFEN 400 MG TABLET (FP) PO PRN ×2 (10:58→21:47)
[2017-12-02] MEDS: SILVER SULFADIAZINE 1% TOP CREAM 50 GM JAR TP SCH ×2 (10:59→21:45)
[2017-12-02] MEDS: THIAMINE HCL 100 MG TABLET (FP) PO SCH (21:45)
[2017-12-02] MEDS: ATORVASTATIN CA 10 MG TABLET (FP) PO SCH (21:45)
[2017-12-02] MEDS: MELATONIN 5 MG TABLETS PO PRN (21:48)
[2017-12-03] MEDS ORDERED: INSULIN (NOVOLOG) ASPART 100 UNITS/ML 10ML VIAL ONE ×4 (06:35→21:57)
[2017-12-03] MEDS: INSULIN (NOVOLOG) ASPART 100 UNITS/ML 10ML VIAL SQ SCH ×4 (07:19→21:47)
[2017-12-03] MEDS: LOSARTAN 50MG/HCTZ 12.5MG 1 TAB (FP) PO SCH (10:50)
[2017-12-03] MEDS: DOCUSATE SODIUM 100 MG CAPSULE (FP) PO SCH (10:50)
[2017-12-03] MEDS: PRENATAL VITAMINS W/ FOLIC ACID TABLET (FP) PO SCH (10:50)
[2017-12-03] MEDS: SILVER SULFADIAZINE 1% TOP CREAM 50 GM JAR TP SCH ×2 (10:50→21:48)
[2017-12-03] MEDS: hydrOXYzine PAMOATE 25 MG CAPSULE (FP) PO PRN ×2 (10:50→21:46)
[2017-12-03] MEDS: NICOTINE 14 MG/24 HOURS TOPICAL PATCH TD SCH (10:51)
[2017-12-03] MEDS: IBUPROFEN 400 MG TABLET (FP) PO PRN ×2 (10:51→21:46)
[2017-12-03] MEDS: THIAMINE HCL 100 MG TABLET (FP) PO SCH (21:46)
[2017-12-03] MEDS: ATORVASTATIN CA 10 MG TABLET (FP) PO SCH (21:46)
[2017-12-03] MEDS: MELATONIN 5 MG TABLETS PO PRN (21:46)
[2017-12-04] MEDS ORDERED: INSULIN (NOVOLOG) ASPART 100 UNITS/ML 10ML VIAL ONE ×3 (06:41→22:07)
[2017-12-04] MEDS: INSULIN (NOVOLOG) ASPART 100 UNITS/ML 10ML VIAL SQ SCH ×4 (07:41→21:55)
[2017-12-04] MEDS: LOSARTAN 50MG/HCTZ 12.5MG 1 TAB (FP) PO SCH (10:51)
[2017-12-04] MEDS: PRENATAL VITAMINS W/ FOLIC ACID TABLET (FP) PO SCH (10:52)
[2017-12-04] MEDS: DOCUSATE SODIUM 100 MG CAPSULE (FP) PO SCH (10:52)
[2017-12-04] MEDS: NICOTINE 14 MG/24 HOURS TOPICAL PATCH TD SCH (10:52)
[2017-12-04] MEDS: SILVER SULFADIAZINE 1% TOP CREAM 50 GM JAR TP SCH ×2 (10:53→21:58)
[2017-12-04] MEDS: IBUPROFEN 400 MG TABLET (FP) PO PRN ×2 (10:54→21:54)
[2017-12-04] MEDS: THIAMINE HCL 100 MG TABLET (FP) PO SCH (21:52)
[2017-12-04] MEDS: ATORVASTATIN CA 10 MG TABLET (FP) PO SCH (21:52)
[2017-12-04] MEDS: MELATONIN 5 MG TABLETS PO PRN (21:53)
[2017-12-04] MEDS: hydrOXYzine PAMOATE 25 MG CAPSULE (FP) PO PRN (21:54)
[2017-12-05] MEDS ORDERED: INSULIN (NOVOLOG) ASPART 100 UNITS/ML 10ML VIAL ONE ×3 (06:44→17:04)
[2017-12-05] MEDS: IBUPROFEN 400 MG TABLET (FP) PO PRN ×3 (06:46→19:00)
[2017-12-05] MEDS: MAG HYDROX/AL HYDROX/SIMETH 30 ML UNIT-DOSE CUP PO PRN (06:46)
[2017-12-05] MEDS: INSULIN (NOVOLOG) ASPART 100 UNITS/ML 10ML VIAL SQ SCH ×4 (07:15→21:55)
[2017-12-05] MEDS: LOSARTAN 50MG/HCTZ 12.5MG 1 TAB (FP) PO SCH (10:51)
[2017-12-05] MEDS: DOCUSATE SODIUM 100 MG CAPSULE (FP) PO SCH (10:51)
[2017-12-05] MEDS: SILVER SULFADIAZINE 1% TOP CREAM 50 GM JAR TP SCH ×2 (10:52→21:55)
[2017-12-05] MEDS: NICOTINE 14 MG/24 HOURS TOPICAL PATCH TD SCH (10:52)
[2017-12-05] MEDS: PRENATAL VITAMINS W/ FOLIC ACID TABLET (FP) PO SCH (10:52)
[2017-12-05] MEDS: THIAMINE HCL 100 MG TABLET (FP) PO SCH (21:55)
[2017-12-05] MEDS: ATORVASTATIN CA 10 MG TABLET (FP) PO SCH (21:55)
[2017-12-05] MEDS: MELATONIN 5 MG TABLETS PO PRN (21:56)
[2017-12-06] MEDS: INSULIN (NOVOLOG) ASPART 100 UNITS/ML 10ML VIAL SQ SCH ×5 (06:49→22:30)
[2017-12-06] MEDS: IBUPROFEN 400 MG TABLET (FP) PO PRN (06:50)
[2017-12-06] MEDS ORDERED: INSULIN (NOVOLOG) ASPART 100 UNITS/ML 10ML VIAL ONE ×4 (07:05→22:17)
[2017-12-06] MEDS: NICOTINE 14 MG/24 HOURS TOPICAL PATCH TD SCH (10:21)
[2017-12-06] MEDS: DOCUSATE SODIUM 100 MG CAPSULE (FP) PO SCH (10:21)
[2017-12-06] MEDS: PRENATAL VITAMINS W/ FOLIC ACID TABLET (FP) PO SCH (10:21)
[2017-12-06] MEDS: SILVER SULFADIAZINE 1% TOP CREAM 50 GM JAR TP SCH ×2 (10:21→22:15)
[2017-12-06] MEDS: LOSARTAN 50MG/HCTZ 12.5MG 1 TAB (FP) PO SCH (10:21)
[2017-12-06] MEDS: ACETAMINOPHEN 325 MG TABLET (FP) PO PRN (10:22)
[2017-12-06] MEDS: THIAMINE HCL 100 MG TABLET (FP) PO SCH (22:15)
[2017-12-06] MEDS: ATORVASTATIN CA 10 MG TABLET (FP) PO SCH (22:15)
[2017-12-07] MEDS ORDERED: INSULIN (NOVOLOG) ASPART 100 UNITS/ML 10ML VIAL ONE ×4 (07:43→20:51)
[2017-12-07] MEDS: INSULIN (NOVOLOG) ASPART 100 UNITS/ML 10ML VIAL SQ SCH ×4 (07:50→22:03)
[2017-12-07] MEDS: LOSARTAN 50MG/HCTZ 12.5MG 1 TAB (FP) PO SCH (10:41)
[2017-12-07] MEDS: PRENATAL VITAMINS W/ FOLIC ACID TABLET (FP) PO SCH (10:41)
[2017-12-07] MEDS: DOCUSATE SODIUM 100 MG CAPSULE (FP) PO SCH (10:41)
[2017-12-07] MEDS: NICOTINE 14 MG/24 HOURS TOPICAL PATCH TD SCH (10:41)
[2017-12-07] MEDS: SILVER SULFADIAZINE 1% TOP CREAM 50 GM JAR TP SCH ×2 (10:42→22:04)
[2017-12-07] MEDS: IBUPROFEN 400 MG TABLET (FP) PO PRN ×2 (10:43→22:05)
[2017-12-07] MEDS: hydrOXYzine PAMOATE 25 MG CAPSULE (FP) PO PRN (10:44)
[2017-12-07] MEDS: MAGNESIUM HYDROX 2400MG/30ML ORAL SUSPENSION 30 ML CUP PO PRN (10:45)
[2017-12-07] MEDS: ATORVASTATIN CA 10 MG TABLET (FP) PO SCH (22:03)
[2017-12-07] MEDS: THIAMINE HCL 100 MG TABLET (FP) PO SCH (22:04)
[2017-12-08] MEDS ORDERED: INSULIN (NOVOLOG) ASPART 100 UNITS/ML 10ML VIAL ONE ×4 (06:27→22:09)
[2017-12-08] MEDS: INSULIN (NOVOLOG) ASPART 100 UNITS/ML 10ML VIAL SQ SCH ×4 (07:38→22:08)
[2017-12-08] MEDS: DOCUSATE SODIUM 100 MG CAPSULE (FP) PO SCH (11:31)
[2017-12-08] MEDS: NICOTINE 14 MG/24 HOURS TOPICAL PATCH TD SCH (11:31)
[2017-12-08] MEDS: LOSARTAN 50MG/HCTZ 12.5MG 1 TAB (FP) PO SCH (11:31)
[2017-12-08] MEDS: SILVER SULFADIAZINE 1% TOP CREAM 50 GM JAR TP SCH ×2 (11:31→22:05)
[2017-12-08] MEDS: PRENATAL VITAMINS W/ FOLIC ACID TABLET (FP) PO SCH (11:31)
[2017-12-08] MEDS: ACETAMINOPHEN 325 MG TABLET (FP) PO PRN (11:39)
[2017-12-08] MEDS: MELATONIN 5 MG TABLETS PO PRN (22:04)
[2017-12-08] MEDS: IBUPROFEN 400 MG TABLET (FP) PO PRN (22:05)
[2017-12-08] MEDS: hydrOXYzine PAMOATE 25 MG CAPSULE (FP) PO PRN (22:05)
[2017-12-08] MEDS: THIAMINE HCL 100 MG TABLET (FP) PO SCH (22:05)
[2017-12-08] MEDS: ATORVASTATIN CA 10 MG TABLET (FP) PO SCH (22:05)
[2017-12-09] MEDS: IBUPROFEN 400 MG TABLET (FP) PO PRN ×2 (06:27→21:43)
[2017-12-09] MEDS: INSULIN (NOVOLOG) ASPART 100 UNITS/ML 10ML VIAL SQ SCH ×4 (06:29→21:44)
[2017-12-09] MEDS: DOCUSATE SODIUM 100 MG CAPSULE (FP) PO SCH (11:15)
[2017-12-09] MEDS: NICOTINE 14 MG/24 HOURS TOPICAL PATCH TD SCH (11:15)
[2017-12-09] MEDS: LOSARTAN 50MG/HCTZ 12.5MG 1 TAB (FP) PO SCH (11:15)
[2017-12-09] MEDS: PRENATAL VITAMINS W/ FOLIC ACID TABLET (FP) PO SCH (11:15)
[2017-12-09] MEDS ORDERED: INSULIN (NOVOLOG) ASPART 100 UNITS/ML 10ML VIAL ONE ×3 (12:13→21:57)
[2017-12-09] MEDS: SILVER SULFADIAZINE 1% TOP CREAM 50 GM JAR TP SCH ×2 (13:06→21:45)
[2017-12-09] MEDS: ATORVASTATIN CA 10 MG TABLET (FP) PO SCH (21:43)
[2017-12-09] MEDS: THIAMINE HCL 100 MG TABLET (FP) PO SCH (21:43)
[2017-12-09] MEDS: hydrOXYzine PAMOATE 25 MG CAPSULE (FP) PO PRN (21:43)
[2017-12-09] MEDS: MELATONIN 5 MG TABLETS PO PRN (21:45)
[2017-12-10] MEDS ORDERED: INSULIN (NOVOLOG) ASPART 100 UNITS/ML 10ML VIAL ONE ×4 (06:25→21:44)
[2017-12-10] MEDS: INSULIN (NOVOLOG) ASPART 100 UNITS/ML 10ML VIAL SQ SCH ×4 (07:12→21:36)
[2017-12-10] MEDS: NICOTINE 14 MG/24 HOURS TOPICAL PATCH TD SCH (10:59)
[2017-12-10] MEDS: PRENATAL VITAMINS W/ FOLIC ACID TABLET (FP) PO SCH (10:59)
[2017-12-10] MEDS: DOCUSATE SODIUM 100 MG CAPSULE (FP) PO SCH (10:59)
[2017-12-10] MEDS: LOSARTAN 50MG/HCTZ 12.5MG 1 TAB (FP) PO SCH (10:59)
[2017-12-10] MEDS: SILVER SULFADIAZINE 1% TOP CREAM 50 GM JAR TP SCH ×2 (11:00→21:38)
[2017-12-10] MEDS: MAGNESIUM CITRATE 300 ML BOTTLE PO PRN (11:02)
[2017-12-10] MEDS: THIAMINE HCL 100 MG TABLET (FP) PO SCH (21:36)
[2017-12-10] MEDS: ATORVASTATIN CA 10 MG TABLET (FP) PO SCH (21:36)
[2017-12-10] MEDS: IBUPROFEN 400 MG TABLET (FP) PO PRN (21:37)
[2017-12-10] MEDS: MELATONIN 5 MG TABLETS PO PRN (21:38)
[2017-12-11] MEDS: LOSARTAN 50MG/HCTZ 12.5MG 1 TAB (FP) PO SCH (10:58)
[2017-12-11] MEDS: DOCUSATE SODIUM 100 MG CAPSULE (FP) PO SCH (10:58)
[2017-12-11] MEDS: NICOTINE 14 MG/24 HOURS TOPICAL PATCH TD SCH (10:58)
[2017-12-11] MEDS: SILVER SULFADIAZINE 1% TOP CREAM 50 GM JAR TP SCH ×2 (10:59→22:01)
[2017-12-11] MEDS: PRENATAL VITAMINS W/ FOLIC ACID TABLET (FP) PO SCH (10:59)
[2017-12-11] MEDS: hydrOXYzine PAMOATE 25 MG CAPSULE (FP) PO PRN (11:02)
[2017-12-11] MEDS: IBUPROFEN 400 MG TABLET (FP) PO PRN (11:02)
[2017-12-11] MEDS: INSULIN (NOVOLOG) ASPART 100 UNITS/ML 10ML VIAL SQ SCH ×4 (11:04→22:03)
[2017-12-11] MEDS ORDERED: INSULIN (NOVOLOG) ASPART 100 UNITS/ML 10ML VIAL ONE ×3 (11:06→22:06)
--- NOTE | 2017-12-11 14:17 | PN ---
Psychiatric Progress Note Vital Signs: Vital Signs Period Temp Pulse Resp BP Sys/Pisano Pulse Ox Last 24 Hr 98.8 F 93 16-18 119/79 Date of Session: 12/11/17 Chief Complaint:: Discharge Note HPI: Patient addressing Opioid dependence comorbid with Nicotine Dependence and substance-Induced Sleep Disorder ROS: HTN, HLD, Type II DM, Osteoporosis, Arthritis Current Medications: Active Medications Generic Name Dose Route Start Last Admin Trade Name Freq PRN Reason Stop Dose Admin Acetaminophen 650 mg 11/11/17 12:29 12/08/17 11:39 Tylenol - PO 650 mg Q4H PRN Administration FEVER Al Hydroxide/Mg Hydroxide 30 ml 11/11/17 12:29 12/05/17 06:46 Mylanta Oral Suspension - PO 30 ml Q6H PRN Administration DYSPEPSIA Atorvastatin Calcium 10 mg 11/11/17 22:00 12/10/17 21:36 Lipitor - PO 10 mg HS TAMMIE Administration Docusate Sodium 100 mg 11/24/17 10:00 12/11/17 10:58 Colace - PO 100 mg DAILY TAMMIE Administration Eucalyptus/Menthol/Phenol/Sorbitol 1 each 11/11/17 12:29 Cepastat Lozenge - MM Q4H PRN SORE THROAT Guaifenesin 10 ml 11/11/17 12:29 Robitussin Dm - PO Q6H PRN COUGH HCTZ/Losartan Potassium 2 tab 11/12/17 10:00 12/11/17 10:58 Hyzaar - PO 2 tab DAILY TAMMIE Administration Hydroxyzine Pamoate 25 mg 11/11/17 12:29 12/11/17 11:02 Vistaril - PO 25 mg Q4H PRN Administration AGITATION Ibuprofen 400 mg 11/11/17 12:29 12/11/17 11:02 Motrin - PO 400 mg Q6H PRN Administration PAIN LEVEL 4-6 Insulin Aspart 0 units 11/11/17 16:30 12/11/17 11:06 Novolog Vial SQ Not Given ACHS [facility] Protocol Loperamide HCl 4 mg 11/11/17 12:29 Imodium - PO Q6H PRN DIARRHEA Magnesium Citrate 300 ml 11/11/17 12:29 12/10/17 11:02 Citroma - PO 300 ml Q48H PRN Administration CONSTIPATION Magnesium Hydroxide 30 ml 11/11/17 12:29 12/07/17 10:45 Milk Of Magnesia - PO 30 ml DAILY PRN Administration CONSTIPATION Melatonin 5 mg 11/11/17 22:00 12/10/17 21:38 Melatonin PO 5 mg HS PRN Administration INSOMNIA Nicotine 14 mg 11/11/17 13:00 12/11/17 10:58 Nicoderm Patch - TD Not Given DAILY TAMMIE Multivit/Folic Acid/Iron 1 tab 11/12/17 10:00 12/11/17 10:59 Vitamins (Sjr) - PO 1 tab DAILY TAMMIE Administration Pseudoephedrine/Triprolidine 1 combo 11/11/17 12:29 Actifed - PO TID PRN NASAL CONGESTION Silver Sulfadiazine 1 applic 11/11/17 22:00 12/11/17 10:59 Silvadene - TP 1 applic BID TAMMIE Administration Thiamine HCl 100 mg 11/11/17 22:00 12/10/17 21:36 Vitamin B1 - PO 100 mg HS TAMMIE Administration Current Side Effect: No Lab tests ordered: Yes Lab tests reviewed: Yes Provider note:: Patient will complete this program on 12/12/17. He has met his treatment goals and will continue to address his issues in [facility] residential treatment at [facility] at [address] [place] [address]. 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 He is stable for discharge on 12/12/17. Total face to face time:: 35 Mental Status Exam - Mental Status Exam Alert and Oriented to: Time, Place, Person Cognitive Function: Fair Patient Appearance: Well Groomed Mood: Hopeful, Euthymic Affect: Appropriate Patient Behavior: Cooperative Speech Pattern: Clear Voice Loudness: Normal Thought Process: Intact Thought Disorder: Not Present Hallucinations: Denies Suicidal Ideation: Denies Homicidal Ideation: Denies Insight/Judgement: Fair Sleep: Fair Appetite: Good Muscle strength/Tone: Normal Gait/Station: Other (uses a rolling walker as aambulatory aid) Psychiatric Treatment Plan - Problem List (1) Opioid dependence Current Visit: Yes (2) Nicotine dependence Current Visit: Yes Qualifiers: Nicotine product type: cigarettes Substance use status: in withdrawal Qualified Code(s): F17.213 - Nicotine dependence, cigarettes, with withdrawal (3) Substance-induced sleep disorder Current Visit: Yes (4) Essential hypertension Current Visit: Yes (5) Hypercholesterolemia Current Visit: Yes (6) Arthritis Current Visit: Yes (7) Osteoporosis Current Visit: Yes (8) DM (diabetes mellitus) Current Visit: Yes Initial treatment plan: Patient will be discharged tomorrow annd referred to [facility] for [facility] residential treatment
[2017-12-11] MEDS: THIAMINE HCL 100 MG TABLET (FP) PO SCH (22:01)
[2017-12-11] MEDS: ATORVASTATIN CA 10 MG TABLET (FP) PO SCH (22:01)
[2017-12-12] MEDS ORDERED: INSULIN (NOVOLOG) ASPART 100 UNITS/ML 10ML VIAL ONE (06:49)
[2017-12-12 07:28] VITALS: BP 133/84; PULSE 96; TEMP 98.2
[2017-12-12] MEDS: INSULIN (NOVOLOG) ASPART 100 UNITS/ML 10ML VIAL SQ SCH (07:43)
[2017-12-12] MEDS: PRENATAL VITAMINS W/ FOLIC ACID TABLET (FP) PO SCH (09:16)
[2017-12-12] MEDS: DOCUSATE SODIUM 100 MG CAPSULE (FP) PO SCH (09:16)
[2017-12-12] MEDS: NICOTINE 14 MG/24 HOURS TOPICAL PATCH TD SCH (09:16)
[2017-12-12] MEDS: LOSARTAN 50MG/HCTZ 12.5MG 1 TAB (FP) PO SCH (09:16)
[2017-12-12] MEDS: SILVER SULFADIAZINE 1% TOP CREAM 50 GM JAR TP SCH (09:20)
== END 2017-12-12 09:55 | disposition home or self-care (01) | DRG 895 ==
LOC: YASAS 10:14 → Y6N 12:05 → UNDODISIN 11-13 17:23 → Y5N 11-18 14:19
PROVIDERS: ATTEND Psychiatry & Neurology Psychiatry
PROC: HZ42ZZZ Group Counseling for Substance Abuse Treatment, Cognitive-Behavioral (ICD-10-PCS; principal; 2017-11-18)
DX: F10.20 Alcohol dependence, uncomplicated (principal); F19.282 Other psychoactive substance dependence with psychoactive substance-induced sleep disorder; F17.213 Nicotine dependence, cigarettes, with withdrawal; I10 Essential (primary) hypertension; E78.00 Pure hypercholesterolemia, unspecified; E11.9 Type 2 diabetes mellitus without complications; Z79.4 Long term (current) use of insulin; M12.9 Arthropathy, unspecified; M81.0 Age-related osteoporosis without current pathological fracture; R31.0 Gross hematuria; L98.411 Non-pressure chronic ulcer of buttock limited to breakdown of skin; I25.2 Old myocardial infarction; Z91.81 History of falling; R26.89 Other abnormalities of gait and mobility; Z99.89 Dependence on other enabling machines and devices; Z59.0 Homelessness
CPT/HCPCS: 36415; 80053; 80061; 81003; 81015; 82962; 83721; 85027; 86593; 93005; 93010

== ENCOUNTER 2017-11-13 17:41 | Emergency (ER) | payer OTHER ==
[2017-11-13 17:56] VITALS: BMI 18.9
[2017-11-13] MEDS ORDERED: SODIUM CHLORIDE 0.9% 1000 ML INFUS.BAG IV ONE (18:20)
[2017-11-13 18:44] LABS: BASO % 1.1 % (0-2.0); EOS % 2.7 % (0-4.5); HEMATOCRIT 35.9 % (35.4-49); LYMPH % 27.7 % (8-40); MCH 30.2 pg (25.7-33.7); MCHC 33.4 g/dl (32.0-35.9); MEAN CELL VOLUME 90.3 fl (80-96); MEAN PLT VOLUME 8.1 fl (7.5-11.1); MONO % 8.6 % (3.8-10.2); NEUT % 59.9 % (42.8-82.8); PLATELET COUNT 348 K/MM3 (134-434); RBC 3.98 M/mm3 (4.00-5.60); RDW 12.6 % (11.9-15.9); WHITE BLOOD COUNT 9.9 K/mm3 (4.0-10.0)
--- NOTE | 2017-11-13 19:03 | PDOC ---
History of Present Illness - General Chief Complaint: Hematuria Stated Complaint: BLOOD IN URINE Time Seen by Provider: 11/13/17 17:58 History Source: Patient, Primary Care Provider Exam Limitations: No Limitations - History of Present Illness Initial Comments: 67 YOM with h/o multiple prior UTIs, prior episode of meena hematuria 6 months ago for which he was worked up and treated at [facility], HTN, HLD, type II IDDM, CAD with vague prior h/o GA, walker use at baseline, heroin dependence (snorts only) in [facility] rehab and now on methadone maintenance, who was sent to the ED by [facility] c/o meena hematuria reported by [facility] provider Tere Russell. Patient himself reports that he additionally has mild burning on urination, and this feels the same as it did 6 months ago. He denies f/c/n/v/d/c , FULTON, neck pain, chest pain, SOB, cough, sore throat, abdominal pain, penile lesions or discharge, testicular pain or swelling, back pain, lightheadedness/ dizziness, or other symptoms. Past History - Past Medical History Allergies/Adverse Reactions: Allergies Allergy/AdvReac Type Severity Reaction Status Date / Time No Known Allergies Allergy Verified 11/13/17 17:54 Home Medications: Ambulatory Orders Insulin Glargine,Hum.rec.anlog [Lantus Solostar PEN (NF)] 8 units SQ HS Losartan/Hydrochlorothiazide [Hyzaar 100-25 Tablet] 1 each PO DAILY 11/11/17 Simvastatin [Zocor] 10 mg PO HS 11/11/17 Anemia: No Asthma: No Cancer: No Cardiac Disorders: No CVA: Yes (tia) COPD: No CHF: No Dementia: No Diabetes: Yes (Type II) GI Disorders: No Disorders: No HTN: Yes (on meds) Hypercholesterolemia: Yes (on med) Kidney Stones: No Liver Disease: No Seizures: No Thyroid Disease: No - Reproductive History Testicular Surgery: No - Suicide/Smoking/Psychosocial Hx Smoking History: Current some day smoker Have you smoked in the past 12 months: Yes Number of Cigarettes Smoked Daily: 4 Information on smoking cessation initiated: No 'Breaking Loose' booklet given: 11/11/17 Hx Alcohol Use: No Drug/Substance Use Hx: Yes Substance Use Type: Heroin Hx Substance Use Treatment: No Abd/GI Specific PMHX - Complaint Specific PMHX Hepatitis: No Pancreatitis: No Review of Systems - Review of Systems Able to Perform ROS?: Yes Constitutional: No: Chills, Fever, Unexplained wgt Loss HEENTM: No: Nose Congestion, Throat Pain Respiratory: No: Cough, Shortness of Breath Cardiac (ROS): No: Chest Pain, Palpitations ABD/GI: No: Constipated, Diarrhea, Nausea, Vomiting : Yes: Burning, Dysuria, Hematuria Musculoskeletal: No: Back Pain, Neck Pain Integumentary: No: Bruising, Rash Neurological: No: Headache, Numbness, Tingling, Weakness, Dizziness Endocrine: No: Unexplained Weight Gain, Unexplained Weight Loss *Physical Exam - Vital Signs Last Vital Signs Temp Pulse Resp BP Pulse Ox 99.7 F H 102 H 20 92/61 95 11/13/17 17:54 11/13/17 17:54 11/13/17 17:54 11/13/17 17:54 11/13/17 17:54 - Physical Exam General Appearance: Yes: Nourished, Appropriately Dressed, Other (awake, alert, oriented, pleasant and well-appearing adult male who answers questions appropriately and appears very comfortable). No: Apparent Distress HEENT: positive: EOMI, TRUE (pupils 1mm bilaterally), Normal ENT Inspection, Normal Voice, Hearing Grossly Normal. negative: Scleral Icterus (R), Scleral Icterus (L), Nasal Congestion Neck: positive: Trachea midline, Supple. negative: Tender, Rigid Respiratory/Chest: positive: Lungs Clear, Normal Breath Sounds. negative: Respiratory Distress, Crackles, Rhonchi, Stridor, Wheezing Cardiovascular: positive: Regular Rhythm, Regular Rate, S1, S2. negative: Edema , JVD, Murmur Gastrointestinal/Abdominal: positive: Normal Bowel Sounds, Soft. negative: Tender, Organomegaly, Pulsatile Mass, Protuberent, Distended, Guarding Musculoskeletal: positive: Normal Inspection. negative: CVA Tenderness, Decreased Range of Motion, Vertebral Tenderness Extremity: positive: Normal Capillary Refill, Normal Inspection, Normal Range of Motion. negative: Tender, Cyanosis Integumentary: positive: Normal Color, Dry, Warm. negative: Erythema, Rash, Bruising Neurologic: positive: transit mixer operator II-XII NML intact, Fully Oriented, Alert, Normal Mood/ Affect, Normal Response, Motor Strength 5/5. negative: EOM Palsy, Facial Droop , Numbness, Sensory Deficit, Confused, Disoriented ED Treatment Course - LABORATORY CBC & Chemistry Diagram: 11/13/17 18:28 11/13/17 18:28 - ADDITIONAL ORDERS Additional order review: 11/13/17 18:28 RBC 3.98 L MCV 90.3 MCHC 33.4 RDW 12.6 MPV 8.1 Neutrophils % 59.9 Lymphocytes % 27.7 Monocytes % 8.6 Eosinophils % 2.7 Basophils % 1.1 - Medications Given in the ED: ED Medications Discontinued Medications Generic Name Dose Route Start Last Admin Trade Name Freq PRN Reason Stop Dose Admin Sodium Chloride 1,000 ml 11/13/17 18:20 11/13/17 18:41 Normal Saline - IV 11/13/17 18:21 1,000 ml ONCE ONE Administration Medical Decision Making - Medical Decision Making Male patient p/w hematuria. Initial Vital Signs Temp Pulse Resp BP Pulse Ox 99.7 F H 102 H 20 92/61 95 11/13/17 17:54 11/13/17 17:54 11/13/17 17:54 11/13/17 17:54 11/13/17 17:54 Exam: As noted in Physical Exam section. DDX IBNLT: hemorrhagic cystitis, neoplasm (e.g. bladder CA, prostate CA, UTI/ pyelonephritis, renal colic/ureteral stone, over-exertion/exercise, RCC sen. with left varicocele), nephritic or nephrotic syndrome, granulomatosis with polyangiitis (lungs, upper airways, and kidneys), Goodpasture syndrome (lungs/ lower airways and kidneys), Alport syndrome (hereditary nephritis), lupus nephritis, IGA nephropathy (Swain disease; common; within 5 days of URI), supratherapeutic INR or coagulopathy, urethritis, epididymitis, orchitis, torsion, local trauma (e.g. catheter, instrumentation, TURP, etc), autosomal dominant polycystic kidney disease, renal artery dissection or thromboembolism, rectal bleed, etc. W/U ordered: CBCD CMP T&S Coags UA UCx TX ordered: IVF 11/13/17 19:57 Repeat oral temp is 99.2. Patient wants to leave, states wants to eat. [place] bag given and patient states will agree to repeat full set vitals and rectal temp. Laboratory Tests 11/13/17 11/13/17 11/13/17 18:28 18:28 19:31 WBC 9.9 RBC 3.98 L Hgb 12.0 Hct 35.9 MCV 90.3 MCH 30.2 MCHC 33.4 RDW 12.6 Plt Count 348 MPV 8.1 Absolute Neuts (auto) 6.0 Neutrophils % 59.9 Lymphocytes % 27.7 Monocytes % 8.6 Eosinophils % 2.7 Basophils % 1.1 Nucleated RBC % 0 Sodium 139 Potassium 4.2 Chloride 100 Carbon Dioxide 31 Anion Gap 8 BUN 14 Creatinine 0.7 Creat Clearance w eGFR > 60 Random Glucose 187 H D Calcium 8.9 Total Bilirubin 0.2 AST 11 L D ALT 22 Alkaline Phosphatase 91 Total Protein 6.3 L Albumin 3.0 L Urine Color Ltyellow Urine Appearance Clear Urine pH 7.0 D Ur Specific [place] 1.015 Urine Protein Negative Urine Glucose (UA) 3+ H Urine Ketones Negative Urine Blood 3+ H Urine Nitrite Negative Urine Bilirubin Negative Urine Urobilinogen Negative Ur Leukocyte Esterase Negative Urine WBC (Auto) 1 Urine RBC (Auto) 367 Vital Signs Temperature 99.3 F 11/13/17 20:59 Pulse Rate 73 11/13/17 20:59 Respiratory Rate 20 11/13/17 20:59 Blood Pressure 112/74 11/13/17 20:59 O2 Sat by Pulse Oximetry (%) 99 11/13/17 20:59 Patient has hematuria on UA sample. US Kidneys Ureters Bladder is ordered. Patient taken for US study. 11/13/17 22:13 US kidneys and bladder without obvious mass lesions or stones, no hydronephrosis , no bladder distention. Pre-void bladder volume is 350, PVR is 100, possible prostate enlargement but poor visualization. Reassessment: Patient states feeling well, wants to go back to [facility], repeat exam benign, abdomen and flanks nontender. Workup is not concerning for emergency-level pathology at this time. The Pt is appropriate for discharge back to [facility] with close outpatient follow up. They are comfortable with this plan and will follow up with their PCP in 1-3 days. Referral information is given for Urology in case the Pt needs a new one. They are counseled to stay well-hydrated. Specific return precautions are discussed and they will come back to the ER if necessary. Transport arrives to take patient back to [facility] without issue. *DC/Admit/Observation/Transfer Diagnosis at time of Disposition: Lightheadedness, Hyperglycemia Hematuria Qualifiers: Hematuria type: unspecified type Qualified Code(s): R31.9 - Hematuria, unspecified - Discharge Dispostion Disposition: [facility] Condition at time of disposition: Stable Decision to Admit order: No - Referrals Referrals: Manny Leos MD., [Staff Physician] - - Patient Instructions Printed Discharge Instructions: DI for Hematuria Additional Instructions: You were seen in the ER for blood in the urine. We did an exam, laboratory tests on your blood and urine, and an ultrasound of your kidneys and bladder. After our assessment, we do not believe you are having a medical emergency at this time, and we believe you are safe to go home. We are giving you referral information for a urologist. Please follow up with your regular doctor in 1-3 days. Call their clinic [facility], tell them you were seen in the ER, and tell them you need an appointment. Please come back to the ER at any time, 24 hours a day , for any new or worsening symptoms, fever, pain, inability to urinate, burning on urination, testicular pain or swelling, worsening lightheadedness, headache, chest pain, shortness of breath, or other symptoms. If you are having severe or life threatening symptoms, or symptoms that make it unsafe to drive or have someone drive you, please call 911. - Post Discharge Activity
[2017-11-13 19:10] LABS: ALK PHOS 91 U/L (45-117); ANION GAP 8 MMOL/L (8-16); BILIRUBIN,TOTAL 0.2 mg/dL (0.2-1.0); BLOOD UREA NITROGEN 14 mg/dL (7-18); CALCIUM 8.9 mg/dL (8.5-10.1); CHLORIDE 100 mmol/L (98-107); CO2 31 mmol/L (21-32); CREATININE 0.7 mg/dL (0.7-1.3); GLUCOSE,RANDOM 187 mg/dL (74-106); POTASSIUM 4.2 mmol/L (3.5-5.1); SGOT/AST 11 U/L (15-37); SGPT/ALT 22 U/L (12-78); SODIUM 139 mmol/L (136-145); TOT PROT 6.3 g/dl (6.4-8.2)
[2017-11-13 19:42] LABS: URINE APPEARANCE CLEAR; URINE BILIRUBIN NEGATIVE (<2.0 mg/dL); URINE COLOR LTYELLOW; URINE GLUCOSE (UA) 3+ (NEGATIVE); URINE KETONE NEGATIVE (NEGATIVE); URINE LEUK ESTERASE NEGATIVE (NEGATIVE); URINE NITRITE NEGATIVE (NEGATIVE); URINE PROTEIN NEGATIVE (NEGATIVE); URINE UROBILINOGEN NEGATIVE mg/dL (0.2-1.0)
--- NOTE | 2017-11-13 19:53 | PDOC ---
Attending Attestation - HPI HPI: 11/13/17 19:57 The patient is a 67 year old male, with a significant past medical history of opioid dependence, hypertension, hypercholesterolemia, osteoporosis, sacral decubitus ulcer, who presents to the emergency department from [facility] for hematuria and dysuria today. He states he has had this in the past which was worked up at [facility], however, he can not recall the results. The patient denies chest pain, shortness of breath, headache and dizziness. The patient denies fever, chills, nausea, vomit, diarrhea and constipation. The patient denies frequency, urgency. Allergies: NKDA Past surgical history: none reported Social history: tobacco smoker. opioid dependence. - Physicial Exam PE: 11/13/17 19:59 GENERAL: The patient is in no acute distress. HEAD: Normal with no signs of trauma. EYES: PERRLA, EOMI, sclera anicteric, conjunctiva clear. ENT: Ears normal, nares patent, oropharynx clear without exudates. Moist mucous membranes. NECK: Normal range of motion, supple without lymphadenopathy, JVD, or masses. LUNGS: Breath sounds equal, clear to auscultation bilaterally. No wheezes, and no crackles. HEART:Regular rate and rhythm, normal S1 and S2 without murmur, rub or gallop. ABDOMEN: Soft, nontender, normoactive bowel sounds. No guarding, no rebound. No masses palpable. EXTREMITIES: Normal range of motion, no edema. No clubbing or cyanosis. No erythema, or tenderness. NEUROLOGICAL: Cranial nerves II through XII grossly intact. Normal speech. No focal neurological deficits. MUSCULOSKELETAL: Back non-tender to palpation, no CVA tenderness - Medical Decision Making 11/13/17 19:57 Documentation prepared by Maria Guadalupe Mari, acting as medical typist for Erin Vargas DO. <Maria Guadalupe Mari - Last Filed: 11/13/17 19:59> - Resident Resident Name: Dianne Bowen - ED Attending Attestation I have performed the following: I have examined & evaluated the patient, The case was reviewed & discussed with the resident, I agree w/resident's findings & plan, Exceptions are as noted - Medical Decision Making 11/13/17 19:52 Laboratory Tests 11/13/17 11/13/17 11/13/17 18:28 18:28 19:31 WBC 9.9 Hgb 12.0 Hct 35.9 Plt Count 348 BUN 14 Creatinine 0.7 Urine Blood 3+ H Urine Nitrite Negative Ur Leukocyte Esterase Negative U/S: no hydronephrosis Pt has a h/o hematuria noted at the end of his urinary stream, previously worked up Will discharge back to [facility] Clinical impression: Microscopic Hematuria, initial impression <Erin Vargas - Last Filed: 11/14/17 01:02>
[2017-11-13 21:03] VITALS: BP 112/74; PULSE 73; TEMP 99.3
== END 2017-11-14 00:45 | disposition other institution (70) ==
LOC: JER 17:41
DX: E11.65 Type 2 diabetes mellitus with hyperglycemia (principal); Z79.4 Long term (current) use of insulin; R31.9 Hematuria, unspecified; R42 Dizziness and giddiness; I25.10 Atherosclerotic heart disease of native coronary artery without angina pectoris; I25.2 Old myocardial infarction; I10 Essential (primary) hypertension; E78.5 Hyperlipidemia, unspecified; E78.00 Pure hypercholesterolemia, unspecified; F11.20 Opioid dependence, uncomplicated; F17.210 Nicotine dependence, cigarettes, uncomplicated; R26.89 Other abnormalities of gait and mobility; Z99.89 Dependence on other enabling machines and devices; Z59.0 Homelessness
CPT/HCPCS: 36415; 76775-TC; 76856-TC; 80053; 81003; 81015; 82962; 85025; 87086; 99283-25; J7030